=== PATIENT | female | born 1965 | race Caucasian/White ===

== ENCOUNTER 2023-03-30 11:25 | Outpatient (OUT) | payer BC, OTHER, SELFPAY ==
--- NOTE | 2023-03-30 11:30 | MM_ITS ---
Patient: FRANCIS ESPARZA Exam Date: 03/30/2023 : 1965 Gender:F Ordering : DR Parvez Lerma D.O. Admission #: [id number] Family : Order #: [id number] CLICK HERE TO VIEW EXAM RADIOLOGY REPORT PROCEDURE: MM TOMOSYNTHESIS SCREENING BI COMPARISON: MG MAMM SCREEN 3D ANIBAL CAD, 03/10/2021. MG MAMM SCREEN 3D ANIBAL CAD, 03/18/2022. INDICATIONS: Screening for malignant neoplasm Calculator Name NCI Breast Cancer Risk Assessment Tool 5 Year Breast Cancer Risk 1.80% Lifetime Breast Cancer Risk 10.20% Personal Breast Cancer No Personal Ovarian Cancer No Treatments None Family Cancers Mother with bladder cancer at age 69. LOCATION: [facility] BREAST COMPOSITION: Heterogeneously dense,which may obscure small masses. FINDINGS: DIAGNOSTIC CATEGORY 1--NEGATIVE. NO CHANGE FROM COMPARISON ASSESSMENT. Scattered benign-appearing calcifications are present. Scattered benign-appearing lymph nodes are present. RIGHT BREAST: No significant suspicious finding. LEFT BREAST: No significant suspicious finding. RECOMMENDATIONS: ROUTINE MAMMOGRAM AND CLINICAL EVALUATION IN 12 MONTHS. PLEASE NOTE: A NORMAL MAMMOGRAM DOES NOT EXCLUDE THE POSSIBILITY OF BREAST CANCER. A CLINICALLY SUSPICIOUS PALPABLE LUMP SHOULD BE BIOPSIED. Dictated by: Lukasz Moncada MD on 03/31/2023 at 08:06 Approved by: Lukasz Moncada MD on 03/31/2023 at 08:07
== END 2023-03-30 11:26 | disposition home or self-care (01) ==
LOC: MAMMO 11:26
PROVIDERS: PCP Internal Medicine; Visit Provider Internal Medicine
DX: Z12.31 Encounter for screening mammogram for malignant neoplasm of breast (principal); Z80.52 Family history of malignant neoplasm of bladder
CPT/HCPCS: 77063; 77067

== ENCOUNTER 2023-05-19 13:48 | Outpatient (OUT) | payer BC, OTHER, SELFPAY | END 2023-05-19 13:49 | disposition home or self-care (01) | LOC: LAB 13:48 | PROVIDERS: PCP Internal Medicine; Visit Provider Internal Medicine | DX: T45.2X1A Poisoning by vitamins, accidental (unintentional), initial encounter (principal) | CPT/HCPCS: 36415; 82306 ==

== ENCOUNTER 2024-04-03 10:08 | Outpatient (OUT) | payer BC, OTHER, SELFPAY ==
--- NOTE | 2024-04-03 10:10 | MM_ITS ---
Patient Name: FRANCIS ESPARZA MR#: [id number] : 1965 Exam Date: 04/03/2024 Ordering Doctor: DR Parvez Lerma D.O. RADIOLOGY REPORT PROCEDURE: MM TOMOSYNTHESIS SCREENING BI COMPARISON: MM TOMOSYNTHESIS SCREENING BI, 03/30/2023. MG MAMM SCREEN 3D ANIBAL CAD, 03/18/2022. MG MAMM SCREEN 3D ANIBAL CAD, 03/10/2021. MG MAMM ANIBAL SCRN W CAD DIG, 11/27/2012. INDICATIONS: Screening Calculator Name NCI Breast Cancer Risk Assessment Tool 5 Year Breast Cancer Risk 1.90% Lifetime Breast Cancer Risk 10.00% Personal Breast Cancer No Personal Ovarian Cancer No Treatments None Family Cancers Mother with bladder cancer at age 69. LOCATION: [facility] BREAST COMPOSITION: The breasts are heterogeneously dense,which may obscure small masses. FINDINGS: DIAGNOSTIC CATEGORY 1--NEGATIVE. RIGHT BREAST: No significant suspicious finding. No significant change has occurred. LEFT BREAST: No significant suspicious finding. No significant change has occurred. RECOMMENDATIONS: ROUTINE MAMMOGRAM AND CLINICAL EVALUATION IN 12 MONTHS. PLEASE NOTE: A NORMAL MAMMOGRAM DOES NOT EXCLUDE THE POSSIBILITY OF BREAST CANCER. A CLINICALLY SUSPICIOUS PALPABLE LUMP SHOULD BE BIOPSIED. Dictated by: Kameron Henderson M.D. on 04/07/2024 at 18:27 Approved by: Kameron Henderson M.D. on 04/07/2024 at 18:30
--- OUTSIDE RECORDS SUMMARY | 2024-04-03 10:11 | XMS_ITS | CCD ---
Author Organization [facility] Care Team Providers Care Roofing Applicator Name Role Phone CHARANJIT, DR PIPER Admitting Unavailable CHARANJIT, DR PIPER Attending Unavailable CHARANJIT, DR PIEPR Primary Care Unavailable CHARANJIT, DR PIPER Consulting Unavailable WEST, DR JOY Reich Consulting Unavailable Parvez Donohue Unavailable Allergies Allergy Classification Reported Allergen(s) Allergy Type Date of Onset Reaction(s) Facility (1 source) Adhesive agent Drug allergy (disorder) [facility] Repository (4 sources) patient allergy list reviewed by nurse or physicia Propensity to adverse reactions Comment:Done [facility] Other Medications Current Medications Medication Drug Class(es) Dates Sig (Normalized) Sig (Original) atorvastatin 40 mg oral tablet (12 sources) HMG-CoA Reductase Inhibitor Start: 08-03-2023 End: 11-14-2023 take 40 mg by mouth once daily in the evening Atorvastatin Active 40 MG PO Every evening 90 90 November 14, 2023 1:15pm Atorvastatin Jonathan cium 40 MG TAKE 1 TABLET DAILY IN THE EVENING Active biotin 1 mg chewable tablet (9 sources) Start: 08-03-2023 take 1000 ug by mouth once daily Biotin Active 1000 MCG PO Daily August 03, 2023 1:00am take 1 tablet by reddy th every twenty-four hours Biotin 1000 MCG 1 tablet Orally Once a day Active take 1 tablet by reddy th every twenty-four hours Biotin 1000 MCG 1 tablet Orally Once a day Active cholecalciferol 0.025 mg oral capsule (3 sources) Vitamin D Start: 08-03-2023 take 25 ug by mouth once daily Cholecalciferol (Vitamin D3) Active 25 MCG PO Daily August 03, 2023 1:00am Start: 12-06-2022 take 1 capsule by mo uth every other day Vitamin D3 250 MCG (20458 UT) 1 capsule Orally qod for 30 days Nov, Active clonazePAM 1 mg oral tablet (12 sources) Benzodiazepine Start: 08-03-2023 End: 08-23-2023 take 1 mg by mouth once daily at bedtime Clonazepam Active 1 MG PO Daily at bedtime 90 90 August 23, 2023 6:02pm Start: 11-21-2022 clonazePAM 1 M G TAKE 1 TABLET AT BEDTIME for 90 May, Active take 1 tablet by reddy th every twenty-four hours clonazePAM 1 MG 1 tablet Orally Once a day Active fluticasone propionate 0.05 mg/actuat metered dose nasal spray (11 sources) Corticosteroid Start: 08-03-2023 Fluticasone Pr opionate Active 1 SPRAY INTRANASAL Daily August 03, 2023 1:00am take 1 spray(s) nasal route once daily Fluticasone Propionate 50 MCG/ACT 1 spray in each nostril Nasally Once a day Active take 1 spray(s) nasal route once daily Fluticasone Propionate 50 MCG/ACT 1 spray in each nostril Nasally Once a day Active mecobalamin 1 mg chewable tablet (2 sources) Start: 08-03-2023 take 1000 ug by mouth once daily Mecobalamin (Vitamin B12) Active 1000 MCG PO Daily August 03, 2023 1:00am metoprolol tartrate 100 mg oral tablet (12 sources) beta-Adrenergic Rita Start: 08-03-2023 End: 11-14-2023 take 100 mg by mouth twice daily Metoprolol Tartrate Active 100 MG PO Twice daily 180 90 November 14, 2023 1:16pm Metoprolol Tartr ate 100 MG TAKE 1 TABLET TWICE A DAY for 90 Active Multi For Her - (7 sources) Multi For Her - as directed Orally Active Multivitamin (Multiple Vitamins) tablet (2 sources) Start: 08-03-2023 take 1 tablet by mouth once daily Multivitamin (Multiple Vitamins) tablet Active 1 TAB PO Daily August 03, 2023 1:00am Start: 08-03-2023 take 1 tablet by reddy th once daily Multivitamin (Multiple Vitamins) tablet Active 1 TAB PO Daily August 03, 2023 12:00am omeprazole 40 mg delayed release oral capsule (12 sources) Proton Pump Inhibitor Start: 08-03-2023 End: 11-14-2023 take 40 mg by mouth once daily at breakfast Omeprazole Active 40 MG PO Daily 90 90 November 14, 2023 1:16pm ON EMPTY STOMACH FOLLOWED IN 30 MINUTES BY BREAKFAST Omeprazole 40 MG TAKE 1 CAPSULE DAILY ON EMPTY STOMACH FOLLOWED IN 30 MINUTES BY BREAKFAST Active sertraline 100 mg oral tablet (12 sources) Serotonin Reuptake Inhibitor Start: 08-03-2023 End: 11-14-2023 take 100 mg by mouth once daily at bedtime Sertraline Active 100 MG PO Daily at bedtime 90 90 November 14, 2023 1:16pm Sertraline HCl 1 00 MG TAKE 1 TABLET AT BEDTIME for 90 Active Sertraline HCl 1 00 MG TAKE 1 TABLET AT BEDTIME Active Sertraline HCl 1 00 MG TAKE 1 TABLET AT BEDTIME for 90 Active vitamin b12 1 mg extended release oral tablet (1 source) Vitamin B12 take 1 tablet by reddy th every twenty-four hours Vitamin B12 1000 MCG 1 tablet Orally Once a day Active Vitamin B12 1000 MCG (6 sources) take 1 tablet by mouth once teresa y Vitamin B12 1000 MCG 1 tablet Orally Once a day Active Vitamin D3 250 MCG (41791 UT ) (6 sources) Start: 12-06-2022 Start: 12-06-2022 take 1 capsule by [facility] every other day Vitamin D3 250 MCG (55425 UT) 1 capsule Orally qod for 30 days Nov, Active Completed/Discontinued Medications Medication Drug Class(es) Dates Sig (Normalized) Sig (Original) doxycycline hyclate 100 mg oral capsule (10 sources) Tetracycline-cla ss Drug Start: 08-03-2023 End: 11-28-2023 take 100 mg by mouth twice daily Doxycycline Hyclate Discontinued 100 MG PO Twice daily 14 August 03, 2023 1:00am November 28, 2023 10:48am Start: 09-22-2022 take 1 capsule by [facility] twice daily as needed Doxycycline Hyclate 100 MG 1 capsule Orally twice daily for 7 days Sep, Not-Taking/PRN predniSONE 20 mg oral tablet (10 sources) Start: 08-03-2023 End: 11-28-2023 Prednisone Discontinued 20 M G PO As Directed August 03, 2023 1:00am November 28, 2023 10:48am 1 tab tid w/ food x 3 days, then bid w/ food x 3 days, then qd w/ food x 3 days Start: 09-22-2022 predniSONE 20 MG 1 tablet Orally tid w/ food x 3 days, then bid w/ food x 3 days, then qd w/ food x 3 days for 9 Sep, Not-Taking/PRN Problems Active Problems Problem Classification Problem Date Documented Da te Episodic/Chronic Acute bronchitis (9 sources) Acute bronchitis due to other specified organisms; Translations: [Acute bronchitis] Onset: 07-31-2013 Resolved: 10-28-2019 Episodic Allergic reactions (20 sources) Allergic contact dermatitis due to plants, except food; Translations: [Allergic contact dermatitis due to plants, except food] Onset: 11-25-2013 Resolved: 10-28-2019 Episodic Anxiety disorders (10 sources) Generalized anxiety disorder; Translations: [Generalized anxiety disorder] Chronic Asthma (1 source) Asthma; Translations: [Unspecified asthma, uncomplicated] 08-03-2023 Chronic Cardiac dysrhythmias (17 sources) Palpitations; Translations: [Palpitations] Onset: 11-13-2018 Resolved: 10-28-2019 Episodic Deficiency and other anemia (13 sources) Pernicious anemia; Translations: [Vitamin B12 deficiency anemia due to intrinsic factor deficiency] Episodic Deficiency and other anemia (1 source) Vitamin B12 deficiency anemia due to intrinsic factor deficiency Episodic Disorders of lipid metabolism (20 sources) Pure hypercholesterolemi a; Translations: [Familial hypercholesterolemi a] Chronic Esophageal disorders (10 sources) Gastro-esophageal reflux disease with esophagitis; Translations: [Gastro-esophageal reflux disease with esophagitis, without bleeding] 11-26-2023 Chronic Essential hypertension (11 sources) Essential hypertension; Translations: [Essential (primary) hypertension] 11-26-2023 Chronic Immunizations and screening for infectious disease (4 sources) Vaccination given; Translations: [Encounter for immunization] Episodic Mood disorders (13 sources) Major depression in remission; Translations: [Major depressive disorder, single episode, in full remission] Chronic Multiple sclerosis (15 sources) Multiple sclerosis; Translations: [Multiple sclerosis] Chronic Other nutritional; endocrine; and metabolic disorders (7 sources) Severe obesity; Translations: [Morbid (severe) obesity due to excess calories] Chronic Other nutritional; endocrine; and metabolic disorders (11 sources) Body mass index 30+ - obesity; Translations: [Body mass index (BMI) 37.0-37.9, adult] Onset: 02-10-2016 Resolved: 10-28-2019 Chronic Other nutritional; endocrine; and metabolic disorders (1 source) Morbid (severe) obesity due to excess calories Chronic Other nutritional; endocrine; and metabolic disorders (1 source) Body mass index (BMI) 37.0-37.9, adult Chronic Other nutritional; endocrine; and metabolic disorders (4 sources) Obesity; Translations: [Obesity, unspecified] Chronic Other nutritional; endocrine; and metabolic disorders (4 sources) Simple obesity ; Translations: [Other obesity due to excess calories] Chronic Other screening for suspected conditions (not mental disorders or infectious disease) (20 sources) Encounter for screening mammogram for malignant neoplasm of breast; Translations: [Mammography abnormal] Onset: 01-12-2015 Resolved: 10-28-2019 Episodic Other upper respiratory disease (13 sources) Seasonal allergic rhinitis; Translations: [Other seasonal allergic rhinitis] Chronic Other upper respiratory infections (12 sources) Acute sinusitis; Translations: [Acute sinusitis, unspecified] Onset: 06-29-2016 Resolved: 10-28-2019 Episodic Poisoning by other medications and drugs (3 sources) Poisoning by vitamins, accidental (unintentional), initial encounter; Translations: [Poisoning by vitamins, accidental (unintentional), subsequent encounter] Episodic Residual codes; unclassified (14 sources) Periodic limb movement disorder; Translations: [Periodic limb movement disorder] 11-26-2023 Chronic Residual codes; unclassified (14 sources) Obstructive sleep apnea syndrome; Translations: [Obstructive sleep apnea (adult) (pediatric)] 11-26-2023 Chronic Residual codes; unclassified (1 source) Obstructive sleep apnea (adult) (pediatric) Chronic Residual codes; unclassified (1 source) Periodic limb movement disorder Chronic Residual codes; unclassified (1 source) Family history of malignant neoplasm of bladder; Translations: [FAM HX MALIGNANT NEOPLASM BLADDER] Onset: 03-22-2022 Episodic Thyroid disorders (15 sources) Subclinical hyperthyroidism; Translations: [Thyrotoxicosis, unspecified without thyrotoxic crisis or storm] 11-26-2023 Chronic Past or Other Problems Problem Classification Problem Date Documented Da te Episodic/Chronic Bacterial infection; unspecified site (4 sources) Bacterial infectious disease; Translations: [Bacterial infection, unspecified, in conditions classified elsewhere and of unspecified site] Onset: 05-09-2018 Resolved: 10-28-2019 Episodic Esophageal disorders (6 sources) Esophageal disorders; Translations: [Gastroesophageal reflux disease with esophagitis without hemorrhage] Malaise and fatigue (4 sources) Malaise and fatigue; Translations: [Other malaise and fatigue] Onset: 01-23-2015 Episodic Nonmalignant breast conditions (8 sources) Benign mammary dysplasia; Translations: [Other specified benign mammary dysplasias] Onset: 09-27-2016 Resolved: 10-28-2019 Episodic Nutritional deficiencies (4 sources) Vitamin D deficiency; Translations: [Vitamin D deficiency, unspecified] Onset: 01-23-2015 Resolved: 10-28-2019 Chronic Other and unspecified benign neoplasm (4 sources) Eruptive melanocytic nevi; Translations: [Melanocytic nevi, unspecified] Onset: 02-10-2016 Resolved: 10-28-2019 Episodic Other connective tissue disease (4 sources) Muscle pain; Translations: [Unspecified myalgia and myositis] Onset: 01-23-2015 Episodic Other ear and sense organ disorders (4 sources) Malignant otitis externa; Translations: [Malignant otitis externa] Onset: 05-18-2018 Resolved: 10-28-2019 Chronic Other ear and sense organ disorders (4 sources) Infective otitis externa; Translations: [Unspecified infective otitis externa] Onset: 05-18-2018 Resolved: 10-28-2019 Chronic Other hereditary and degenerative nervous system conditions (4 sources) Restless legs; Translations: [Restless legs syndrome] Resolved: 11-19-2019 Chronic Other non-traumatic joint disorders (4 sources) Joint pain; Translations: [Pain in joint, site unspecified] Onset: 07-31-2013 Episodic Other nutritional; endocrine; and metabolic disorders (4 sources) Obese class I; Translations: [Body mass index 34.0-34.9, adult] Onset: 02-10-2016 Resolved: 10-28-2019 Chronic Other nutritional; endocrine; and metabolic disorders (4 sources) Obese class II; Translations: [Body mass index 35.0-35.9, adult] Onset: 11-11-2016 Resolved: 10-28-2019 Chronic Otitis media and related conditions (4 sources) Eustachian tube salpingitis; Translations: [Unspecified Eustachian salpingitis, right ear] Onset: 05-09-2018 Resolved: 10-28-2019 Episodic Unclassified (4 sources) Abnormal result; Translations: [Other abnormal clinical finding] Onset: 03-22-2016 Viral infection (4 sources) Viral disease; Translations: [Viral infection, unspecified] Onset: 07-31-2013 Resolved: 10-28-2019 Episodic Results Test Name Value Interpretation Reference Range Facil ity MG MAMM SCREEN 3D ANIBAL CADon 03-18-2022 MG MAMM SCREEN 3D ANIBAL CAD Patient: FRANCIS ESPARZA Exam Date: 03/18/2022 : 1965 Gender:F Ordering : DR PARVEZ DONOHUE D.O. Admission #: [id number] Family : Order #: [id number] CLICK HERE TO VIEW EXAM RADIOLOGY REPORT PROCEDURE: MAMMOGRAM SCREENING 3D BILATERAL CAD COMPARISON: MG MAMM SCREEN ANIBAL W CAD, 03/03/2020. MG MAMM SCREEN 3D ANIBAL CAD, 03/10/2021. INDICATIONS: Screening mammography Calculator Name NCI Breast Cancer Risk Assessment Tool 5 Year Breast Cancer Risk 1.70% Lifetime Breast Cancer Risk 10.40% Personal Breast Cancer No Personal Ovarian Cancer No Treatments None Family Cancers Mother with bladder cancer at age 69. LOCATION: [facility] BREAST COMPOSITION: Heterogeneously dense,which may obscure small masses. FINDINGS: DIAGNOSTIC CATEGORY 1--NEGATIVE. NO CHANGE FROM COMPARISON ASSESSMENT. Scattered benign-appearing calcifications are present. RIGHT BREAST: No significant suspicious finding. LEFT BREAST: No significant suspicious finding. Stable focal asymmetry upper outer quadrant mid breast. RECOMMENDATIONS: ROUTINE MAMMOGRAM AND CLINICAL EVALUATION IN 12 MONTHS. PLEASE NOTE: A NORMAL MAMMOGRAM DOES NOT EXCLUDE THE POSSIBILITY OF BREAST CANCER. A CLINICALLY SUSPICIOUS PALPABLE LUMP SHOULD BE BIOPSIED. Dictated by: Joy Moncada MD on 03/18/2022 at 11:34 Approved by: Joy Moncada MD on 03/18/2022 at 11:50 Normal [facility] Vital Signs Date Time Vital Sign Value Performing Clinician Facility 11-28-2023 10:49-0400 Body height 167.64 cm [facility] 11-28-2023 10:49-0400 Body mass index (BMI) [Ratio] 35.9 kg/m2 [facility] 11-28-2023 10:49-0400 Body weight 100.86 kg [facility] 11-28-2023 10:49-0400 Diastolic blood pressure 76 mm[Hg] [facility] 06-18-2024 10:49-0400 Heart rate 70 /min [facility] 11-28-2023 10:49-0400 Respiratory rate 12 /min [facility] 11-28-2023 10:49-0400 Systolic blood pressure 122 mm[Hg] [facility] 05-29-2023 14:30-0500 Body height 167.64 cm [facility] 05-29-2023 14:30-0500 Body weight 104.87 kg [facility] 05-29-2023 14:30-0500 Diastolic blood pressure 69 mm[Hg] [facility] 05-29-2023 14:30-0500 Systolic blood pressure 104 mm[Hg] [facility] 12-06-2022 10:00-0400 Body height 167.64 cm Parvez Ball Other [facility] Other 12-06-2022 10:00-0400 Body mass index (BMI) [Ratio] 37.31 kg/m2 Parvez Ball Other [facility] Other 12-06-2022 10:00-0400 Body weight 104.87 kg Parvez Ball Other [facility] Other 12-06-2022 10:00-0400 Diastolic blood pressure 72 mm[Hg] Parvez Ball Other [facility] Other 12-06-2022 10:00-0400 Respiratory rate 12 /min Parvez Ball Other [facility] Other 12-06-2022 10:00-0400 Systolic blood pressure 105 mm[Hg] Parvez Ball Other [facility] Other Encounters Encounter Date Encounter Type Care Provider Facility Start: 11-28-2023 End: 11-28-2023 ambulatory [facility] Work Phone: Start: 11-28-2023 End: 11-28-2023 Encounter for general adult medical examination without abnormal findings [facility] Start: 11-28-2023 End: 11-28-2023 Patient encounter procedure [facility] Work Phone: Start: 08-03-2023 End: 08-03-2023 ambulatory [facility] Work Phone: Start: 08-03-2023 End: 08-03-2023 Patient encounter procedure [facility] Work Phone: Start: 05-29-2023 End: 05-29-2023 Patient encounter procedure [facility] Work Phone: Start: 05-22-2023 End: 05-22-2023 ambulatory Parvez Ball Other [facility] Other Start: 05-22-2023 Telephone encounter Parvez Ball [facility] Start: 05-16-2023 End: 05-16-2023 ambulatory Parvez Ball Other [facility] Other Start: 05-16-2023 Telephone encounter Parvez Ball [facility] Start: 05-15-2023 End: 05-15-2023 ambulatory Parvez Ball Other [facility] Other Start: 05-15-2023 Telephone encounter Parvez Ball [facility] Start: 04-03-2023 End: 04-03-2023 ambulatory Parvez Ball Other [facility] Other Start: 04-03-2023 Telephone encounter Parvez Ball [facility] Start: 12-06-2022 End: 12-06-2022 ambulatory Parvez Ball Other [facility] Other Start: 12-06-2022 Encounter for genera l adult medical examination without abnormal findings Parvez Ball [facility] Start: 12-06-2022 Periodic preventive med est patient 40-64yrs Parvez Ball [facility] Start: 12-06-2022 Telephone encounter Parvez Ball [facility] Start: 2022 End: 2022 ambulatory Parvez Donohue Other [facility] Other Start: 2022 Telephone encounter Parvez Donohue [facility] Start: 09-22-2022 End: 09-22-2022 ambulatory Parvez Donohue Other [facility] Other Start: 09-22-2022 Office outpatient vi sit 15 minutes Parvez Donohue [facility] Start: 03-18-2022 End: 03-19-2022 ambulatory PARVEZ DONOHUE Facility: Start: 12-02-2021 Adult health examination Parvez Donohue Other [facility] Other Procedures Date Procedure Procedure Detail Performing Clinician Start: 02-08-2017 End: 10-28-2019 Screening mammography Parvez Donohue Other Start: 02-10-2016 End: 10-28-2019 General examination of patient Parvez Donohue Other Start: 02-10-2016 End: 10-28-2019 Screening for malignant neoplasm of colon Parvez Donohue Other Screening for malign ant neoplasm of breast Parvez Donohue Other Immunizations Immunization Date Immunization Notes Care Provider Nico cervantes 03-28-2022 influenza virus vaccine, split virus (incl. purified surface antigen) Parvez Donohue Other [facility] Other 03-28-2022 influenza virus vaccine, unspecified formulation [facility] 03-28-2022 influenza, injectabl e, quadrivalent, preservative free [facility] 03-28-2022 influenza, injectabl e, quadrivalent, contains preservative Parvez Donohue Other [facility] Other 05-12-2021 COVID-19 Vaccine Moderna - Documentation Purposes Only Parvez Donohue Other [facility] 03-30-2021 influenza virus vaccine, split virus (incl. purified surface antigen) Parvez Donohue Other [facility] Other 03-30-2021 influenza virus vaccine, unspecified formulation [facility] 09-04-2020 COVID-19 Vaccine Moderna - Documentation Purposes Only Parvez Donohue Other [facility] 08-26-2020 COVID-19 Vaccine Moderna - Documentation Purposes Only Parvez Donohue Other [facility] 08-07-2020 COVID-19 Vaccine Moderna - Documentation Purposes Only Parvez Donohue Other [facility] 03-21-2019 influenza virus vaccine, split virus (incl. purified surface antigen) Parvez Donohue Other [facility] Other 03-21-2019 influenza virus vaccine, unspecified formulation [facility] Payers Date Payer Category Payer Unknown [id number] 1959 [employer] ( and others) [id number] 1960 Unknown [id number] [place] [facility] [id number] Social History Date Type Detail Facility Sex Assigned At [facility] [place] [facility] Other Start: 08-03-2023 End: 08-03-2023 Tobacco smoking status NHIS Ex-smoker (finding) [facility] Start: 1965 Sex Assigned At Female F [facility] Evaluation note 05-15-2023 Note Date & Type Note Facility 05-15-2023 Evaluation note Encounter Date Diagnosis Assessment Notes May, Poisoning by vitamin D, accidental or unintentional, initial encounter (ICD-10 - T45.2X1A) [facility] Other Evaluation note 12-06-2022 Note Date & Type Note Facility 12-06-2022 Evaluation note Encounter Date Diagnosis Assessment Notes Nov, Wellness examination (ICD-10 - Z00.00) Healthy diet and exercise. Reviewed age-appropriate preventive testing recommended. Nov, Hypercholesterolemia (ICD-10 - E78.00) Instructed on diet and exercise with continued statin therapy.Discusse d the beneficial effects of lowering cholesterol in reducing the risk for cerebrovascular and cardiovascular disease. Nov, Gastroesophageal reflux disease with esophagitis without hemorrhage (ICD-10 - K21.00) Diet instructions: Smaller portions, avoid eating and laying flat, avoid eating or drinking prior to bedtime. Weight loss. Nov, MS (multiple sclerosis) (ICD-10 - G35) Symptoms tolerable, no treatment necessary. f/u Neurology Nov, MARLEY (obstructive sleep apnea) (ICD-10 - G47.33) This patient is aware of the benefits associated with MARLEY: With continued use, the patient reduces the risk for CT, CVA, HTN, cardiac dysrhythmias and sudden cardiac deaths.The patient is also aware of the association between MARLEY and morning headaches, daytime somnolence, fatigue and obesity, which also has been improved with continued use.The patient is compliant with treatment, wearing the equipment every night for greater than 4 hours.The patient is instructed to continue use of the CPAP for MARLEY treatment. Nov, Pernicious anemia (ICD-10 - D51.0) SL B12 1000mcg daily. CBC w/ normal Hgb, MCV Nov, PLMD (periodic limb movement disorder) (ICD-10 - G47.61) Improved w/ use of Klonopin and PAP Nov, PHYLLIS (generalized anxiety disorder) (ICD-10 - F41.1) Healthy diet, exercise and keep active. Continue SSRI Nov, Poisoning by vitamin D, accidental or unintentional, initial encounter (ICD-10 - T45.2X1A) Instructed to hold Vitamin D during summer months. Restart in February and decrease to 10,000u qod Recheck Vitamin D in Nov, Morbid (severe) obesity due to excess calories (ICD-10 - E66.01) This patient has been instructed on a low-fat, high-fiber diet. They are instructed to reduce calories, portion sizes and snacks. It is recommended that they exercise for 30 minutes, 3-5 times weekly. Nov, Body mass index [BMI] 37.0-37.9, adult (ICD-10 - Z68.37) Nov, Colon cancer screening (ICD-10 - Z12.11) [facility] Other Evaluation note 12-06-2022 Note Date & Type Note Facility 12-06-2022 Evaluation note Encounter Date Diagnosis Assessment Notes Nov, Screening mammogram for breast cancer (ICD-10 - Z12.31) [facility] Other Evaluation note 09-22-2022 Note Date & Type Note Facility 09-22-2022 Evaluation note Encounter Date Diagnosis Assessment Notes Sep, Acute bronchitis due to other specified organisms (ICD-10 - J20.8) Instructed to use Robitussin or Mucinex for cough, saline or Flonase NS for congestion, Tylenol for pain and fever. [facility] Other Evaluation note Note Date & Type Note Facility Evaluation note No Information [facility] Other Evaluation note Note Date & Type Note Facility Evaluation note [facility] Other Evaluation note Note Date & Type Note Facility Evaluation note No assessment information availa [facility] Work Phone: Evaluation note Note Date & Type Note Facility Evaluation note Diagnosis Onset Date PHYLLIS (generalized anxiety disorder) acute GERD (gastroesophageal reflux disease) acute Hypercholesterolemia acute Hypertension acute Subclinical hypothyroidism a cute Wellness examination noneact marilu [facility] Work Phone: History general Narrative - Reported Note Date & Type Note Facility History general Narrative - Reported Type Medical History Pernicious anemia Medical History Subclinical hyperthyroidism Medical History Obstructive sleep apnea Medical History Essential (primary) hypertension Medical History Hyperlipidemia type II Medical History Gastroesophageal ref lux disease with esophagitis without hemorrhage Medical History Seasonal allergic rh initis, unspecified trigger Medical History Abnormal mammogram of left breas t Medical History Allergic contact cheko matitis due to plants, except food Medical History MS (multiple sclerosis) Medical History Palpitation Medical History PLMD (periodic limb movement dis order) Medical History Major depression in remission Surgical History BIOPSY OF LEFT BREAS T WITH ULTRASOUND GUIDANCE Surgical History SEPTOPLASTY Surgical History ETHMOIDECTOMY 1998 Surgical History TUBAL LIGATION 2004 Surgical History MARILEE 2004 Surgical History CYSTOSCOPY 2006 Surgical History RIGHT BUNIONECTOMY 2012 Hospitalization History SEE SURGICAL HX ilab Other History general Narrative - Reported Note Date & Type Note Facility History general Narrative - Reported ilab Other Summary Purpose Family History Relationship Condition Age at Onset Recorded Date/T rober father Alive and well Unknown Advance Directives Advance Directive Response Recorded Date/ Time Advance Directives No July 06, 2023 11:54am Advance Directive Response Recorded Date/ Time Advance Directives No July 06, 2023 12:54pm Chief Complaint and Reason for Visit Chief Complaint 6 Month Follow Up Sinuses, Neg [phone] Chief Complaint 6 month follow up Reason for Visit PHYLLIS (generalized anx iety disorder) GERD (gastroesophageal reflux disease) Hypercholesterolemia Hypertension Subclinical hypothyroidism Wellness examination Additional Source Comments INFORMATION SOURCE (unrecogn ized section and content) DATE CREATED AUTHOR 03/22/2022 [facility] REASON FOR VISIT (unrecogniz ed section and content) [phone]- Sinuses/ Conge stionNo InformationWELLNESSNo InformationNo Informationmamm resultsVitamin D recheckNo Informationlab results Care Teams (unrecognized sec tion and content) Team Status: Active Member Role Status Dates Parvez Donohue DO Primary Care Provider Active Team Status: Inactive Member Role Status Dates Parvez Donohue DO Attending Provider Active Sta rt: May 29, 2023 End: May 29, 2023 Team Status: Inactive Member Role Status Dates Parvez Donohue DO Primary Care Provide r, Attending Provider Active Start: August 03, 2023 End: August 03, 2023 Team Status: Inactive Member Role Status Dates Parvez Donohue DO Primary Care Provide r, Attending Provider Active Start: November 28, 2023 End: November 28, 2023 Goals (unrecognized section and content) Goals may be documented in a n alternate section FOR RECORDS PERTAINING TO PATIENTS WHO ARE OR HAVE BEEN ENROLLED IN A CHEMICAL DEPENDENCY/SUBSTANCEABUSE PROGRAM, SOME INFORMATION MAY BE OMITTED. This clinical summary was aggregated from multiple sources. Caution should be exercised in using it in the provision of clinical care. This summary normalizes information from multiple sources, and as a consequence, information in this document may materially change the coding, format and clinical context of patient data. In addition, data may be omitted in some cases. CLINICAL DECISIONS SHOULD BE BASED ON THE PRIMARY CLINICAL RECORDS. [facility], [facility]. provides no warranty or guarantee of the accuracy or completeness of information in this document.
== END 2024-04-03 10:09 | disposition home or self-care (01) ==
LOC: MAMMO 10:08
PROVIDERS: PCP Internal Medicine; Visit Provider Internal Medicine
DX: Z12.31 Encounter for screening mammogram for malignant neoplasm of breast (principal); Z80.52 Family history of malignant neoplasm of bladder
CPT/HCPCS: 77063; 77067

== ENCOUNTER 2024-05-29 11:23 | Outpatient (OUT) | payer BC, OTHER, SELFPAY ==
--- NOTE | 2024-05-29 11:29 | XR_ITS ---
The [address] [address] Patient Name: FRANCIS ESPARZA MRN: [id number] date: 1965 Sex: F Assigned Patient Location: RAD Current Patient Location: RAD Accession/Order Number: [id number] Exam Date: 05/29/2024 11:34 Report Date: 05/29/2024 16:10 At the request of: FELIZ DONOHUE Procedure: XR chest 2V PROCEDURE: XR chest 2V DATE: 05/29/2024 10:34 AM [employer] [employer] [employer] COMPARISONS: None. CLINICAL INDICATION: 58 years Female Cough FINDINGS: The heart and mediastinum are within normal limits. There is slightly coarse increased markings throughout all lung ponce. The etiology is unclear at this time. Given the history of cough, this could be diffuse interstitial inflammatory infiltrate. There is no consolidating infiltrates to suggest localized pneumonia however. These increased markings could be due to chronic lung changes. There is no evidence of pleural effusion or pneumothorax. XR/XR chest 2V IMPRESSION: Diffuse increase interstitial markings of unclear etiology. These likely either represent chronic lung changes or some diffuse interstitial inflammatory infiltrate. Electronically authenticated by: CLAUDINE BETANCUR Date: 05/29/2024 16:10
--- OUTSIDE RECORDS SUMMARY | 2024-05-29 11:47 | XMS_ITS | CCD ---
Author Organization [facility] Care Team Providers Care Engraver Wood Name Role Phone FLORENTIN, DR PIPER Admitting Unavailable FLORENTIN, DR PIPER Attending Unavailable FLORENTIN, DR PIPER Primary Care Unavailable FLORENTIN, DR PIPER Consulting Unavailable WEST, DR JOY Reich Consulting Unavailable Parvez Donohue Unavailable Allergies Allergy Classification Reported Allergen(s) Allergy Type Date of Onset Reaction(s) Facility (1 source) Adhesive agent Drug allergy (disorder) [facility] Repository (4 sources) patient allergy list reviewed by nurse or physicia Propensity to adverse reactions Comment:Done [facility] Other Medications Current Medications Medication Drug Class(es) Dates Sig (Normalized) Sig (Original) atorvastatin 40 mg oral tablet (14 sources) HMG-CoA Reductase Inhibitor Start: 08-03-2023 End: 11-14-2023 take 40 mg by mouth once daily in the evening Atorvastatin Active 40 MG PO Every evening 90 90 November 14, 2023 1:15pm Atorvastatin Jonathan cium 40 MG TAKE 1 TABLET DAILY IN THE EVENING Active biotin 1 mg chewable tablet (10 sources) Start: 08-03-2023 take 1000 ug by mouth once daily Biotin Active 1000 MCG PO Daily August 03, 2023 1:00am take 1 tablet by reddy th every twenty-four hours Biotin 1000 MCG 1 tablet Orally Once a day Active take 1 tablet by reddy th every twenty-four hours Biotin 1000 MCG 1 tablet Orally Once a day Active cholecalciferol 0.025 mg oral capsule (4 sources) Vitamin D Start: 08-03-2023 take 25 ug by mouth once daily Cholecalciferol (Vitamin D3) Active 25 MCG PO Daily August 03, 2023 1:00am Start: 12-06-2022 take 1 capsule by mo uth every other day Vitamin D3 250 MCG (95743 UT) 1 capsule Orally qod for 30 days Nov, Active fluticasone propionate 0.05 mg/actuat metered dose nasal spray (12 sources) Corticosteroid Start: 08-03-2023 Fluticasone Pr opionate Active 1 SPRAY INTRANASAL Daily August 03, 2023 1:00am take 1 spray(s) nasal route once daily Fluticasone Propionate 50 MCG/ACT 1 spray in each nostril Nasally Once a day Active take 1 spray(s) nasal route once daily Fluticasone Propionate 50 MCG/ACT 1 spray in each nostril Nasally Once a day Active mecobalamin 1 mg chewable tablet (3 sources) Start: 08-03-2023 take 1000 ug by mouth once daily Mecobalamin (Vitamin B12) Active 1000 MCG PO Daily August 03, 2023 1:00am metoprolol tartrate 100 mg oral tablet (14 sources) beta-Adrenergic Rita Start: 08-03-2023 End: 11-14-2023 take 100 mg by mouth twice daily Metoprolol Tartrate Active 100 MG PO Twice daily 180 90 November 14, 2023 1:16pm Metoprolol Tartr ate 100 MG TAKE 1 TABLET TWICE A DAY for 90 Active Multi For Her - (7 sources) Multi For Her - as directed Orally Active Multivitamin (Multiple Vitamins) tablet (3 sources) Start: 08-03-2023 take 1 tablet by mouth once daily Multivitamin (Multiple Vitamins) tablet Active 1 TAB PO Daily August 03, 2023 1:00am Start: 08-03-2023 take 1 tablet by reddy th once daily Multivitamin (Multiple Vitamins) tablet Active 1 TAB PO Daily August 03, 2023 12:00am omeprazole 40 mg delayed release oral capsule (14 sources) Proton Pump Inhibitor Start: 08-03-2023 End: 11-14-2023 take 40 mg by mouth once daily at breakfast Omeprazole Active 40 MG PO Daily 90 90 November 14, 2023 1:16pm ON EMPTY STOMACH FOLLOWED IN 30 MINUTES BY BREAKFAST Omeprazole 40 MG TAKE 1 CAPSULE DAILY ON EMPTY STOMACH FOLLOWED IN 30 MINUTES BY BREAKFAST Active sertraline 100 mg oral tablet (14 sources) Serotonin Reuptake Inhibitor Start: 08-03-2023 End: 11-14-2023 take 100 mg by mouth once daily at bedtime Sertraline Active 100 MG PO Daily at bedtime 90 November 14, 2023 1:16pm Sertraline HCl [...] a day Active Vitamin D3 250 MCG (10599 UT ) (6 sources) Start: 12-06-2022 Start: 12-06-2022 take 1 capsule by mo uth every other day Vitamin D3 250 MCG (19503 UT) 1 capsule Orally qod for 30 days Nov, Active Completed/Discontinued Medications Medication Drug Class(es) Dates Sig (Normalized) Sig (Original) clonazePAM 1 mg oral tablet (16 sources) Benzodiazepine Start: 08-03-2023 End: 02-06-2024 take 1 mg by mouth once daily at bedtime Clonazepam Discontinued 1 MG PO Daily at bedtime 90 90 February 05, 2024 9:29pm February 06, 2024 5:00pm Start: 11-21-2022 clonazePAM 1 M G TAKE 1 TABLET AT BEDTIME for 90 May, Active take 1 tablet by [facility] every twenty-four hours clonazePAM 1 MG 1 tablet Orally Once a day Active doxycycline hyclate 100 mg oral capsule (11 sources) Tetracycline-class Drug Start: 08-03-2023 End: 11-28-2023 take 100 mg by mouth twice daily Doxycycline Hyclate Discontinued 100 MG PO Twice daily 14 August 03, 2023 1:00am November 28, 2023 10:48am Start: 09-22-2022 take 1 capsule by mo [facility] twice daily as needed Doxycycline Hyclate 100 MG 1 capsule Orally twice daily for 7 days Sep, Not-Taking/PRN predniSONE 20 mg oral tablet (11 sources) Start: 08-03-2023 End: 11-28-2023 Prednisone Discontinued [...] Onset: 11-25-2013 Resolved: 10-28-2019 Episodic Anxiety disorders (11 sources) Generalized anxiety disorder; Translations: [Generalized anxiety disorder] Chronic Asthma (2 sources) Asthma; Translations: [Unspecified asthma, uncomplicated] 08-03-2023 Chronic [...] Translations: [Familial hypercholesterolemi a] Chronic Esophageal disorders (11 sources) Gastro-esophageal reflux disease with esophagitis; Translations: [Gastro-esophageal reflux disease with esophagitis, without bleeding] 11-26-2023 Chronic Essential hypertension (12 sources) Essential hypertension; Translations: [Essential (primary) hypertension] 11-26-2023 Chronic Immunizations and screening for infectious disease (4 sources) Vaccination given; Translations: [Encounter for immunization] Episodic Mood disorders (13 sources) Major depression in remission; Translations: [Major depressive disorder, single episode, in full remission] Chronic Multiple sclerosis (16 sources) Multiple sclerosis; Translations: [Multiple sclerosis] Chronic [...] (unintentional), subsequent encounter] Episodic Residual codes; unclassified (15 sources) Periodic limb movement disorder; Translations: [Periodic limb movement disorder] 11-26-2023 Chronic Residual codes; unclassified (15 sources) Obstructive sleep apnea syndrome; Translations: [Obstructive [...] : DR PARVEZ DONOHUE D.O. Admission #: [id number] Family : Order #: [id number] CLICK HERE TO VIEW EXAM RADIOLOGY REPORT [...] with bladder cancer at age 68. LOCATION: [facility] BREAST COMPOSITION: Heterogeneously dense,which may obscure [...] Moncada MD on 03/18/2022 at 11:50 Normal [facility] Vital Signs Date Time Vital Sign Value Performing Clinician Facility 11-28-2023 10:49-0400 Body height 167.64 cm [facility] 11-28-2023 10:49-0400 Body mass index (BMI) [Ratio] 35.9 kg/m2 [facility] 11-28-2023 10:49-0400 Body weight 100.86 kg [facility] 11-28-2023 10:49-0400 Diastolic blood pressure 76 mm[Hg] [facility] 11-28-2023 10:49-0400 Heart rate 70 /min [facility] 11-28-2023 10:49-0400 Respiratory rate 12 /min [facility] 11-28-2023 10:49-0400 Systolic blood pressure 122 mm[Hg] [facility] 05-29-2023 14:30-0500 Body height 167.64 cm [facility] 05-29-2023 14:30-0500 Body weight 104.87 kg [facility] 05-29-2023 14:30-0500 Diastolic blood pressure 69 mm[Hg] [facility] 05-29-2023 14:30-0500 Systolic blood pressure 104 mm[Hg] [facility] 12-06-2022 10:00-0400 Body height 167.64 cm Parvez Ball Other [facility] Other 12-06-2022 10:00-0400 Body mass index (BMI) [Ratio] 37.31 kg/m2 Parvez Ball Other [facility] [employer] Other 12-06-2022 10:00-0400 Body weight 104.87 kg Parvez Ball Other [facility] Other 12-06-2022 10:00-0400 Diastolic blood pressure 72 mm[Hg] Parvez Ball Other [facility] Other 12-06-2022 10:00-0400 Respiratory rate 12 /min Parvez Ball Other [facility] Other 12-06-2022 10:00-0400 Systolic blood pressure 105 mm[Hg] Parvez Ball Other [facility] Other Encounters Encounter Date Encounter Type Care Provider Facility Start: 04-03-2024 End: 04-03-2024 ambulatory [facility] Work Phone: Start: 04-03-2024 End: 04-03-2024 Patient encounter procedure [facility] Work Phone: Start: 11-28-2023 End: 11-28-2023 ambulatory [facility] Work Phone: Start: 11-28-2023 End: 11-28-2023 Encounter for general adult medical examination without abnormal findings [facility] Start: 11-28-2023 End: 11-28-2023 Patient encounter procedure [facility] Work Phone: Start: 08-03-2023 End: 08-03-2023 ambulatory [facility] Work Phone: Start: 08-03-2023 End: 08-03-2023 Patient encounter procedure [facility] Work Phone: Start: 05-29-2023 End: 05-29-2023 Patient encounter procedure [facility] Work Phone: Start: 05-22-2023 End: 05-22-2023 ambulatory Parvez Ball Other [facility] Other Start: 05-22-2023 Telephone encounter Parvez Ball [facility] Start: 05-16-2023 End: 05-16-2023 ambulatory Parvez Ball Other [facility] Other Start: 05-16-2023 Telephone encounter Parvez Ball [facility] Start: 05-15-2023 End: 05-15-2023 ambulatory Parvez Ball Other [facility] Other Start: 05-15-2023 Telephone encounter Parvez Ball [facility] Start: 04-03-2023 End: 04-03-2023 ambulatory Parvez Ball Other [facility] Other Start: 04-03-2023 Telephone encounter Parvez Ball [facility] Start: 12-06-2022 End: 12-06-2022 ambulatory Parvez Ball Other [facility] Other Start: 12-06-2022 Encounter for genera l adult medical examination without abnormal findings Parvez Donohue [facility] Start: 12-06-2022 Periodic preventive med est patient 40-64yrs Parvez Donohue [facility] Start: 12-06-2022 Telephone encounter Parvez Donohue [facility] Start: 2022 End: 2022 ambulatory Parvez Donohue Other [facility] Other Start: 2022 Telephone encounter Parvez CAMACHO [facility] Start: 09-22-2022 End: 09-22-2022 ambulatory Parvez Donohue Other [facility] Other Start: 09-22-2022 Office outpatient vi sit 15 minutes Parvez Donohue [facility] Start: 03-18-2022 End: 03-19-2022 ambulatory PARVEZ DONOHUE Facility: Start: 12-02-2021 Adult health examination Parvez Donohue Other [facility] Other Procedures Date Procedure Procedure Detail Performing Clinician Start: 02-08-2017 End: 10-28-2019 Screening mammography Parvez Donohue Other Start: 02-10-2016 End: 10-28-2019 General examination of patient Parvez Donohue Other Start: 02-10-2016 End: 10-28-2019 Screening for malignant neoplasm of colon Parvez Donohue Other Screening for malign ant neoplasm of breast Parvez Donohue Other Immunizations Immunization Date Immunization Notes Care Provider Fa billy 04-03-2024 influenza, seasonal, injectable, preservative free [facility] 03-28-2022 influenza virus vaccine, split virus (incl. purified surface antigen) Parvez Donohue Other [facility] Other 03-28-2022 influenza virus vaccine, unspecified formulation [facility] 03-28-2022 influenza, injectabl e, quadrivalent, preservative free [facility] 03-28-2022 influenza, injectabl e, quadrivalent, contains preservative Parvez Donohue Other [facility] [employer] Other 05-12-2021 COVID-19 Vaccine Moderna - Documentation Purposes Only Parvez Donohue Other [facility] 03-30-2021 influenza virus vaccine, split virus (incl. purified surface antigen) Parvez Donohue Other [facility] Other 03-30-2021 influenza virus vaccine, unspecified formulation [facility] 09-04-2020 COVID-19 Vaccine Moderna - Documentation Purposes Only Parvez Donohue Other [facility] 08-26-2020 COVID-19 Vaccine Moderna - Documentation Purposes Only Parvez Donohue Other [facility] 08-07-2020 COVID-19 Vaccine Moderna - Documentation Purposes Only Parvez Donohue Other [facility] 03-21-2019 influenza virus vaccine, split virus (incl. purified surface antigen) Parvez Donohue Other [facility] [employer] Other 03-21-2019 influenza virus vaccine, unspecified formulation [facility] Payers Date Payer Category Payer Unknown [id number] 1959 [employer] ( and others) [id number] 1960 Unknown [id number] Unknown O [id number] Social History Date Type Detail Facility Sex Assigned At [facility] [employer] Other Start: 08-03-2023 End: 08-03-2023 Tobacco smoking status NHIS Ex-smoker (finding) [facility] Start: 1965 Sex Assigned At Female F [facility] Evaluation note 05-15-2023 Note Date & Type Note Facility 05-15-2023 Evaluation note Encounter Date Diagnosis Assessment Notes May, Poisoning by vitamin D, accidental or unintentional, initial encounter (ICD-10 - T45.2X1A) [facility] Other Evaluation note 12-06-2022 Note Date & [...] use, the patient reduces the risk for NH, CVA, HTN, cardiac dysrhythmias and sudden cardiac [...] Nov, Colon cancer screening (ICD-10 - Z12.11) [facility] Other Evaluation note 12-06-2022 Note Date & Type Note Facility 12-06-2022 Evaluation note Encounter Date Diagnosis Assessment Notes Nov, Screening mammogram for breast cancer (ICD-10 - Z12.31) [facility] Other Evaluation note 09-22-2022 Note Date & Type Note Facility 09-22-2022 Evaluation note Encounter Date Diagnosis Assessment Notes Sep, Acute bronchitis due to other specified organisms (ICD-10 - J20.8) Instructed to use Robitussin or Mucinex for cough, saline or Flonase NS for congestion, Tylenol for pain and fever. [facility] Other Evaluation note Note Date & Type Note Facility Evaluation note No Information [facility] Other Evaluation note Note Date & Type Note Facility Evaluation note [facility] Other Evaluation note Note Date & Type Note Facility Evaluation note No assessment information availa [facility] Work Phone: Evaluation note Note Date & Type Note Facility Evaluation note Diagnosis Onset Date PHYLLIS (generalized anxiety disorder) acute GERD (gastroesophageal reflux disease) acute Hypercholesterolemia acute Hypertension acute Subclinical hypothyroidism a cute Wellness examination noneact marilu [facility] Work Phone: History general Narrative - [...] Surgical History MARILEE 2004 Surgical History CYSTOSCOPY 2005 Surgical History RIGHT BUNIONECTOMY 2012 Hospitalization History SEE SURGICAL HX [facility] Other History general Narrative - Reported Note Date & Type Note Facility History general Narrative - Reported [facility] Other Summary Purpose Family History Relationship Condition Age at Onset Recorded Date/T rober father Alive and well Unknown Advance Directives Advance Directive Response Recorded Date/ Time Advance Directives No July 06, 2023 11:54am Advance Directive Response Recorded Date/ Time Advance Directives No July 06, 2023 12:54pm Chief Complaint and Reason for Visit Chief Complaint 6 Month Follow Up Sinuses, Neg [phone] Chief Complaint 6 month follow up Reason for Visit PHYLLIS (generalized anx iety disorder) GERD (gastroesophageal reflux disease) Hypercholesterolemia Hypertension Subclinical hypothyroidism Wellness examination Chief Complaint flu shot Additional Source Comments INFORMATION SOURCE (unrecogn ized section and content) DATE CREATED AUTHOR 03/22/2022 [facility] REASON FOR VISIT (unrecogniz ed section and content) [phone]- Sinuses/ Conge stionNo InformationWELLNESSNo InformationNo Informationmamm resultsVitamin D recheckNo Informationlab results Care Teams (unrecognized sec tion and content) Team Status: Active Member Role Status Dates Parvez Donohue DO Primary Care Provider Active Team Status: Inactive Member Role Status Dates Parvez Donohue DO Attending Provider Active Sta rt: May 29, 2023 End: May 29, 2023 Team Status: Inactive Member Role Status Demi Donohue DO Primary Care Provide r, Attending Provider Active Start: August 03, 2023 End: August 03, 2023 Team Status: Inactive Member Role Status Dates Parvez Donohue DO Primary Care Provide r, Attending Provider Active Start: November 28, 2023 End: November 28, 2023 Team Status: Inactive Member Role Status Dates Parvez Donohue DO Primary Care Provide r, Attending Provider Active Start: April 03, 2024 End: April 03, 2024 Goals (unrecognized section and content) Goals may [...] BE BASED ON THE PRIMARY CLINICAL RECORDS. [facility]. provides no warranty or guarantee of the accuracy or completeness of information in this document.
== END 2024-05-29 11:24 | disposition home or self-care (01) ==
LOC: RAD 11:25
PROVIDERS: PCP Internal Medicine; Visit Provider Internal Medicine
DX: R05.1 Acute cough (principal)
CPT/HCPCS: 71046

== ENCOUNTER 2024-08-30 14:20 | Outpatient (OUT) | payer BC, OTHER, SELFPAY ==
--- NOTE | 2024-08-30 14:25 | CT_ITS ---
The [address] [address] Patient Name: FRANCIS ESPARZA MRN: [id number] date: 1965 Sex: F Assigned Patient Location: CT Current Patient Location: CT Accession/Order Number: [id number] Exam Date: 08/30/2024 14:56 Report Date: 08/30/2024 15:10 At the request of: FELIZ DONOHUE DO Procedure: CT chest wo con CT CHEST WITHOUT CONTRAST COMPARISON: Chest x-ray 05/29/2024 CLINICAL DATA: Cough. History of abnormal chest x-ray with interstitial changes Spiral images were obtained the chest without contrast. Images were reviewed using both narrow and wide window settings. This CT exam was performed using one or more following dose reduction techniques: Automated exposure control, adjustment of the mA and/or kV according to patient size, or use of iterative reconstruction technique. The heart is normal size. No pericardial effusion is seen. No aortic aneurysm is identified. There are few small mediastinal and axillary lymph nodes. Mild endplate spurring is seen at the spine. Minor linear scarring or atelectasis is visualized, greatest at the lung bases. There is no additional consolidation, pleural effusion or pneumothorax. No interstitial and obstructive lung disease is noted. There are tiny scattered right lung nodules measuring 3 to 4 mm in size. There is a groundglass pleural-based nodular density at the right middle lobe measuring 5 mm and a subtle groundglass nodular area within the left upper lobe laterally which is also approximately 5 mm in size. Limited cuts through the upper abdomen show an irregular nodular area with associated calcification. Diaphragmatic region on the left posteriorly measuring approximate 2.7 cm in size. This appears to be arising from the distal aspect of the 12th rib. Etiology and chronicity is undetermined. CT/CT chest wo con IMPRESSION: MINOR SCARRING OR ATELECTASIS. TINY PULMONARY NODULES, DESCRIBED. IF PATIENT IS HIGH RISK, FOLLOW-UP COULD BE OBTAINED ACCORDING TO [employer] GUIDELINES. INDETERMINANT IRREGULAR CALCIFIED AREA ASSOCIATED WITH THE DISTAL LEFT 12TH RIB. Impression dictated by: Malorie Crouch M.D.08/30/2024 3:10 PM Dictation Location: [place] [address] Electronically authenticated by: [id number] Y Date: 08/30/2024 15:10
== END 2024-08-30 14:21 | disposition home or self-care (01) ==
LOC: CT 14:20
PROVIDERS: Visit Provider Internal Medicine
DX: R91.8 Other nonspecific abnormal finding of lung field (principal); R05.1 Acute cough; R93.89 Abnormal findings on diagnostic imaging of other specified body structures
CPT/HCPCS: 71250

== ENCOUNTER 2024-10-10 09:01 | Outpatient (OUT) | payer BC, OTHER, SELFPAY ==
[2024-10-10 09:15] LABS: Hemoglobin 13.1 g/dL (12.0-16.0)
--- NOTE | 2024-10-10 11:30 | RT_ITS ---
The [facility] Test Date: 2024-10-10 Pat Name: FRANCIS ESPARZA Department: Room: - Gender: Female Commercial Sales Manager: Efraín Cummings RRT : 1965 Requested By: FELIZ DONOHUE Order Number: [id number] Reading MD: Waldo Potts Interpretive Statements Pulmonary function testing was completed according to ATS criteria. Findings were considered accurate and reproducible. No bronchodilator was administered due to normal spirometric values. Spirometry: -FEV1/FVC: Normal @ 80% -FEV1: Normal @ 100% -FVC: Normal @ 96% Lung volumes by plethysmography: -RV: Normal @ 110% -TLC: Normal @ 110% Diffusion capacity: -DLCO: Mild reduction @ 75% when corrected for Hb 13.1g/dL Impressions: -Normal spirometry and lung volumes with an isolated mild diffusion impairment. This pattern can be seen in, but not restricted to, cardiopulmonary vascular disorders, early interstitial lung disease, and early emphysema. Clinical correlation required. Electronically Signed On 10-14-2024 17:03:47 EDT by Waldo Potts
== END 2024-10-10 09:02 | disposition home or self-care (01) ==
LOC: CARD 09:03
PROVIDERS: Visit Provider Internal Medicine
DX: R91.8 Other nonspecific abnormal finding of lung field (principal); J45.40 Moderate persistent asthma, uncomplicated
CPT/HCPCS: 36415; 85018; 94010; 94726; 94729

== ENCOUNTER 2025-03-13 08:35 | Outpatient (OUT) | payer BC, OTHER, SELFPAY ==
--- OUTSIDE RECORDS SUMMARY | 2024-08-16 09:37 | XMS_ITS ---
Author Name Auto Generated Organization [facility] Care Team Providers Care Mri Assistant Name Role Phone GARRY GREENE Attending Unavailable PROBLEMS No Problem Records Found PROCEDURES No Procedure Records Found RESULTS No Result Records Found ALLERGIES No Allergies Records Found ENCOUNTERS ADMIT/DISCHARGE ACCOUNT NUMBER ADMITTING ENCOUNTER CLASS LOCATION SOURCE 08/16/2024/ [id number] Ambulatory Building:[facility] EPIC PAYERS ENCOUNTER GUARANTOR PAYER SUBSCRIBER SOURCE 08/16/2024 FRANCIS COLEMANSDOB: [id number] [address] [address]Wcl: () Primary Insurance:Eva newman Number: [id number] marilu Date:2021-06-12 JOE COLEMANSDOB: [id number] [address] [address] [facility] EPIC 08/16/2024 Secondary Insurance:SANTOSH sanchez Number: [id number] Date:2009-11-25 FRANCIS COLEMANSDOB: [id number] [address] [address] [facility] EPIC
--- OUTSIDE RECORDS SUMMARY | 2025-03-13 08:39 | XMS_ITS | Clinical Summary ---
Author Organization [facility] Address [address] [place] [address] Care Team Providers Care [employer] Officer Name Role Phone Parvez Lerma DO Primary Care Provider [phone] Allergies No known active allergies Medications atorvastatin (Lipitor) 40 MG tablet 1 (one) time each day at the same time Active clonazePAM (KlonoPIN) 1 MG tablet 1 (one) time each day at the same time Active fluticasone (Flonase) 50 MCG/ACT nasal spray 1 (one) time each day at the same time Active loratadine (Claritin) 10 MG tablet 1 (one) time each day at the same time Active metoprolol tartrate (Lopressor) 100 MG tablet every 12 (twelve) hours Active omeprazole (PriLOSEC) [address] capsule 1 (one) time each day at the same time Active sertraline (Zoloft) 100 MG tablet 1 (one) time each day at the same time Active Advair Diskus 250-50 MCG/ACT aerosol powder 05/29/2024 Acti ve Adipex-P 37.5 MG tablet 05/29/2024 Active Active Problems No known active problems Social History Tobacco Use Types Packs/Day Years Used Date Smoking Tobacco: Former Cigarettes Tobacco Cessation:Counseling Given: Not Answered Comments Unknown Sex and Gender Information Value Date Recorded Sex Assigned at Not on file Legal Sex Female 6:48 PM EDT Gender Identity Not on file Sexual Orientation Not on file Plan of Treatment Upcoming Encounters Date Type Department Care Team (Late st Contact Info) Description 08/22/2025 9:00 AM EDT Office Visit [facility] [address] [place] [address] Sara Feldman, JOHNNY [address] [place] [address] Health Maintenance Due Date Last Done Comments CT Colonography 1965 Colonoscopy 1965 FIT 1965 FOBT 1965 Sigmoidoscopy 1965 Pap Smear 1985 Cervical Cancer Screening 1994 HPV/Cotest 1994 Mammogram 2004 Influenza Vaccine (#1) 2025 04/03/2024, 2022, 03/30/2021 Colorectal Cancer Screening 12/27/2025 FIT-DNA 12/27/2025 12/27/2022, 2019 Insurance BCBS [facility] Care Teams [employer] Relationship Specialty Start Date End Date Parvez Lerma DO PCP - General 08/09/24
--- NOTE | 2025-03-13 09:07 | CT_ITS ---
The [address] [address] Patient Name: FRANCIS ESPARZA MRN: [id number] date: 1965 Sex: F Assigned Patient Location: CT Current Patient Location: CT Accession/Order Number: [id number] Exam Date: 03/13/2025 08:59 Report Date: 03/13/2025 10:12 At the request of: FELIZ DONOHUE DO Procedure: CT chest high res HIGH-RESOLUTION CT CHEST WITHOUT CONTRAST COMPARISON: 08/30/2024 CLINICAL DATA: Chronic cough. Spiral axial unenhanced images were obtained through the chest. Images were reconstructed at 1 mm sections at 10 mm increments. Patient was also scanned in prone position using high resolution technique. Images were reviewed using both narrow and wide window settings. This CT exam was performed using one or more following dose reduction techniques: Automated exposure control, adjustment of the mA and/or kV according to patient size, or use of iterative reconstruction technique. The heart is normal size. No pericardial effusion is present. No aortic aneurysm is seen. There are a few tiny nonpathologic lymph nodes which were also present on the prior. There is endplate spurring at the spine. There is continued scarring or atelectasis, greatest at the lingula. There is no developing consolidation, pleural effusion or pneumothorax. No interstitial or obstructive lung disease is visualized. Stable bilateral pulmonary nodularity is noted. Limited cuts through the upper abdomen show a similar irregular calcified structure superior to the left kidney adjacent to the posterior hemidiaphragm, potentially arising from the 12th rib. CT/CT chest high res IMPRESSION: CONTINUED SCARRING AND/OR ATELECTASIS. STABLE PULMONARY NODULARITY. NO NEW ABNORMALITIES. Impression dictated by: Malorie Crouch M.D. 03/13/2025 10:12 AM Dictation Location: [place] [address] Electronically authenticated by: [id number] Y Date: 03/13/2025 10:12
== END 2025-03-13 08:36 | disposition home or self-care (01) ==
LOC: CT 08:35
PROVIDERS: PCP Internal Medicine; Visit Provider Internal Medicine
DX: R91.8 Other nonspecific abnormal finding of lung field (principal); J84.9 Interstitial pulmonary disease, unspecified
CPT/HCPCS: 71250

== ENCOUNTER 2025-04-04 10:27 | Outpatient (OUT) | payer BC, OTHER, SELFPAY ==
--- OUTSIDE RECORDS SUMMARY | 2025-04-04 10:29 | XMS_ITS | Clinical Summary ---
Author Organization [facility] Healthcare Address [address] [place] [address] Care Team Providers Care Paper Products Machine Operator Name Role Phone Parvez Lerma DO Primary Care Provider [phone] Allergies No known active allergies Medications MedicationSigDispense QuantityRefillsLast FilledStart DateEnd DateStatus atorvastatin (Lipitor) 40 MG tablet 1 (one) time each day at the same timeActive clonazePAM (KlonoPIN) 1 MG tablet 1 (one) time each day at the same timeActive fluticasone (Flonase) 50 MCG/ACT nasal spray 1 (one) time each day at the same timeActive loratadine (Claritin) 10 MG tablet 1 (one) time each day at the same timeActive metoprolol tartrate (Lopressor) 100 MG tablet every 12 (twelve) hoursActive omeprazole (PriLOSEC) [address] capsule 1 (one) time each day at the same timeActive sertraline (Zoloft) 100 MG tablet 1 (one) time each day at the same timeActive Advair Diskus 250-50 MCG/ACT aerosol powder 05/29/2024ctive Adipex-P 37.5 MG tablet 05/29/2024ctive Active Problems No known active problems Social History Tobacco UseTypesPacks/DayYears UsedDateSmoking Tobacco: FormerCigarettes Tobacco Cessation:Counseling Given: Not Answered CommentsUnknownSex and Gender InformationValueDate RecordedSex Assigned at BirthNot on fileLegal QdiNbeotf89/15/2023 6:48 PM EDTGender IdentityNot on fileSexual OrientationNot on file Plan of Treatment DateTypeDepartmentCare Team (Latest Contact Info)Ercxmefmgqx24/13/2026 9:00 AM EDTOffice Visit [facility] [address] [place] [address] Sara Feldman, JOHNNY [address] [place] [address] Health MaintenanceDue DateLast DoneCommentsCT Bfrmogmikuov22/22/1965Colonoscopy 1964FIT1964FOBT1964 9017Tapjdclyirukm52/22/1965Pap Smear1985 Cervical Cancer Iwgjcebre01/22/1995HPV/Addada2412/01/19940552Ndgdaqibq03/22/2005 Influenza Vaccine (#1)/, 04/04/2023, 03/30/2021olorectal Cancer Usmekkzqs03/18/2026FIT-DNA, 2019 Insurance Care Teams Team MemberRelationshipSpecialtyStart DateEnd Date Parvez Lerma DO PCP - General08/09/24
--- OUTSIDE RECORDS SUMMARY | 2025-04-04 10:31 | XMS_ITS | CCD ---
Author Organization [facility] Team Providers Care Mis Manager Name Role Phone DR PARVEZ DONOHUE Admitting Unavailable FLORENTIN, DR PIPER Attending Unavailable FLORENTIN, DR PIPER Primary Care Unavailable FLORENTIN, DR PIPER Consulting Unavailable WEST, DR JOY Reich Consulting Parvez Anthony Unavailable GARRY GREENE Attending Unavailable Parvez Donohue DO Primary Care Provider Parvez Donohue DO Attending Provider [phone] Allergies Allergy ClassificationReported Allergen(s)Allergy TypeDate of OnsetReaction(s) Facility (1 source)Adhesive agentDrug allergy (disorder)[facility] Repository (4 sources)patient allergy list reviewed by nurse or physiciaPropensity to adverse zkahwmtru62-03-2771Fuvjpxf:Spotjournal Other Medications Current Medications MedicationDrug Class(es)DatesSig (Normalized)Sig (Original)[id number] 200 actuat albuterol 0.09 mg/actuat metered dose inhaler (4 sources)beta2-Adrenergic AgonistStart: 31-32-2439luib 1 puff(s) by inhalation every six hours as needed for wheezingAlbuterol Sulfate 90 mcg/actuation HFA aerosol inhaler Active 2 PUFF INHALATION Every 6 hours as needed for shortness of breath or wheezing 8.5 May 15, 2024 1:00am Complies with drug therapyStart: 13-88-7956jofm 1.25 mg by inhalation four times daily as needed Albuterol Sulfate 1.25 mg/3 mL solution for nebulization Active 1.25 MG INHALATION Four times dailyas needed for bronchospasm 75 May 10, 2024 1:00am Complies with drug therapyAlbuterol Sulfate 1.25 mg/3 mL solution for nebulization (2 sources)Start: 74-47-2847efaz 1.25 mg by inhalation four times daily as neededAlbuterol Sulfate 1.25 mg/3 mL solution for nebulization Active 1.25 MG INHALATION Four times dailyas needed for bronchospasm 75 May 10, 2024 1:00amStart: 15-95-0422koik 1.25 mg by inhalation four times daily as needed Albuterol Sulfate 1.25 mg/3 mL solution for nebulization Active 1.25 MG INHALATION Four times dailyas needed for bronchospasm 75 May 10, 2024 12:00amatorvastatin 40 mg oral tablet (20 sources)HMG-CoA Reductase InhibitorStart: 14-00-8010wxoe 1 tablet by mouth once daily in the eveningAtorvastatin 40 mg tablet Active 0 .ROUTE .COMPLEX October 15, 2024 10:34pm TAKE ONE TABLET BY MOUTH EVERY EVENING Complies with drug therapyStart: 08-03-2023 End: 59-33-9522eeuz 1 tablet by mouth once daily in the eveningAtorvastatin 40 mg tablet Discontinued 40 MG PO Every evening November 14, 2023 1:15pm October 15, 2024 10:35pmAtorvastatin Calcium 40 MG TAKE 1 TABLET DAILY IN THE EVENING Activebiotin 1 mg chewable tablet (13 sources)Start: 05-72-5804jdkw 1 tablet by mouth once dailyBiotin 1,000 mcg tablet,chewable Active 1000 MCG PO Daily August 03, 2023 1:00am Complies with drug therapytake 1 tablet by mouth every twenty-four hoursBiotin 1000 MCG 1 tablet Orally Once a day Activetake 1 tablet by mouth every twenty-four hours Biotin 1000 MCG 1 tablet Orally Once a day Activecholecalciferol 0.025 mg oral capsule (7 sources)Vitamin DStart: 21-80-5706vnkl 1 capsule by mouth once daily Cholecalciferol (Vitamin D3) 25 mcg (1,000 unit) capsule Active 25 MCG PO Daily August 0341:00am Complies with drug therapyStart: 12-27-9880ezgj 1 capsule by mouth every other dayVitamin D3 250 MCG (62099 UT) 1 capsule Orally qod for 30 days Nov, ActiveclonazePAM 1 mg oral tablet (20 sources)BenzodiazepineStart: 08-03-2023 End: 58-86-8010xnho 1 tablet by mouth once daily at bedtimeClonazepam 1 mg tablet Active 1 MG PO Daily at bedtime 90 90 January 05, 2025 7:29pm Complies with drug therapyStart: 45-19-2640pciibhfITW 1 MG TAKE 1 TABLET AT BEDTIME for 90 May, Activetake 1 tablet by mouth every twenty-four hoursclonazePAM 1 MG 1 tablet Orally Once a day Activefluticasone propionate 0.05 mg/actuat metered dose nasal spray (15 sources)CorticosteroidStart: 77-06-5065Khrzijwncvw Propionate 50 mcg/actuation spray,suspension Active 1 SPRAY INTRANASAL Daily August 03, 2023 1:00am Complies with drug therapytake 1 spray(s) nasal route once daily Fluticasone Propionate 50 MCG/ACT 1 spray in each nostril Nasally Once a day Activetake 1 spray(s) nasal route once dailyFluticasone Propionate 50 MCG/ACT 1 spray in each nostril Nasally Once a day ActiveFluticasone Propion-Salmeterol (6 sources)Corticosteroid, beta2-Adrenergic AgonistStart: 82-96-4658Maamrqabkob Propion-Salmeterol 250-50 mcg/dose blister with device Active 1 INH INHALATION Every 12hours 180 30 January 23, 2025 5:59pm Complies with drug therapyStart: 07-26-2024 End: 04-10-1381Zurohewmkpj Propion-Salmeterol 250-50 mcg/dose blister with device Discontinued 1 INH INHALATION Every 12 hours 60 July 26, 2024 2:19pm January 23, 2025 6:01pmStart: 67-87-6790Kwwmwtapfiy Propion-Salmeterol 250-50 mcg/dose blister with device Active 1 INH INHALATION Every 12hours 60 July 26, 2024 2:19pmStart: 05-29-2024 End: 72-84-6652Tdliaprcxow Propion-Salmeterol (Advair Diskus) 250-50 mcg/dose blister with device Discontinued 1 INH INHALATION Twice daily 60 30 May 29, 2024 1:00am July 26, 2024 2:19pmlevoFLOXacin 750 mg oral tablet (6 sources)Quinolone AntimicrobialStart: 05-10-2024 End: 78-60-3102xfqa 1 tablet by mouth once dailyLevofloxacin 750 mg tablet Active 750 MG PO Daily 7 June 04, 2024 10:27am Complies with drug therapymecobalamin 1 mg chewable tablet (6 sources)Start: 19-82-0823lkuw 1 tablet by mouth once dailyMecobalamin (Vitamin B12) 1,000 mcg tablet,chewable Active 1000 MCG PO Daily August 03, 2023 1:00am Complies with drug therapymetoprolol tartrate 100 mg oral tablet (20 sources)beta-Adrenergic BlockerStart: 13-03-7629ykon 1 tablet by mouth twice dailyMetoprolol Tartrate 100 mg tablet Active 0 .ROUTE .COMPLEX 180 October 15, 2024 10:34pm TAKE ONE TABLET BY MOUTH TWICE A DAY Complies with drug therapy Start: 08-03-2023 End: 41-21-4755xhcy 1 tablet by mouth twice dailyMetoprolol Tartrate 100 mg tablet Discontinued 100 MG PO Twice daily 180 90 November 14, 2023 1:16pm October 15, 2024 10:35pmMetoprolol Tartrate 100 MG TAKE 1 TABLET TWICE A DAY for 90 Active Multi For Her - (7 sources)Multi For Her - as directed Orally ActiveMultivitamin (Multiple Vitamins) tablet (6 sources)Start: 44-40-1585poqw 1 tablet by mouth once dailyMultivitamin (Multiple Vitamins) tablet Active 1 TAB PO Daily August 03, 2023 1:00am Complies with drug therapyStart: 21-50-1090rvfi 1 tablet by mouth once daily Multivitamin (Multiple Vitamins) tablet Active 1 TAB PO Daily August 03, 2023 1:00amStart: 26-81-4610iqvd 1 tablet by mouth once dailyMultivitamin (Multiple Vitamins) tablet Active 1 TAB PO Daily August 03, 2023 12:00am omeprazole 40 mg delayed release oral capsule (20 sources)Proton Pump InhibitorStart: 90-56-2891ztde 1 capsule by mouth once daily 30 minutes before breakfastOmeprazole 40 mg capsule,delayed release(DR/EC) Active 0 .ROUTE .COMPLEX 90 October 15, 2024 10:34pm TAKE 1 CAPSULE BY MOUTH EVERY DAY ON AN EMPTY STOMACH 30 MINUTES BEFORE BREAKFAST Complies with drug therapy Start: 08-03-2023 End: 11-87-4737wkkl 1 capsule by mouth once daily at breakfastOmeprazole 40 mg capsule,delayed release(DR/EC) Discontinued 40 MG PO Daily November 14, 2023 1:16pm October 15, 2024 10:35pm ON EMPTY STOMACH FOLLOWED IN 30 MINUTES BY BREAKFASTOmeprazole 40 MG TAKE 1 CAPSULE DAILY ON EMPTY STOMACH FOLLOWED IN 30 MINUTES BY BREAKFAST Activesertraline 100 mg oral tablet (20 sources)Serotonin Reuptake InhibitorStart: 05-06-2024 End: 05-53-2829vdwa 1 tablet by mouth at bedtimeSertraline 100 mg tablet Active 0 .ROUTE .COMPLEX October 15, 2024 10:34pm TAKE 1 TABLET BY MOUTH AT BEDTIME Complies with drug therapyStart: 08-03-2023 End: 35-98-7652lyzl 1 tablet by mouth once daily at bedtimeSertraline 100 mg tablet Discontinued 100 MG PO Daily at bedtime November 14, 2023 1:16pm May 06, 2024 8:00amSertraline HCl 100 MG TAKE 1 TABLET AT BEDTIME for 90 ActiveSertraline HCl 100 MG TAKE 1 TABLET AT BEDTIME ActiveSertraline HCl 100 MG TAKE 1 TABLET AT BEDTIME for 90 Activevitamin b12 1 mg extended release oral tablet (1 source)Vitamin S48fnrd 1 tablet by mouth every twenty-four hoursVitamin B12 1000 MCG 1 tablet Orally Once a day ActiveVitamin B12 1000 MCG (6 sources)take 1 tablet by mouth once dailyVitamin B12 1000 MCG 1 tablet Orally Once a day ActiveVitamin D3 250 MCG (83863 UT) (6 sources)Start: 26-61-0803Osbjm: 48-92-7039ewrg 1 capsule by mouth every other dayVitamin D3 250 MCG (74460 UT) 1 capsule Orally qod for 30 days Nov, Active Completed/Discontinued Medications MedicationDrug Class(es)DatesSig (Normalized)Sig (Original)doxycycline hyclate 100 mg oral capsule (14 sources)Tetracycline-class DrugStart: 08-03-2023 End: 17-88-5400xyng 1 capsule by mouth twice dailyDoxycycline Hyclate 100 mg capsule Discontinued 100 MG PO Twice daily 23 12August 03, 2023 1:00am November 28, 2023 10:48amStart: 49-88-6207zofk 1 capsule by mouth twice daily as needed Doxycycline Hyclate 100 MG 1 capsule Orally twice daily for 7 days Sep, Not-Taking/PRNphentermine hydrochloride 37.5 mg oral tablet (8 sources)Sympathomimetic Amine AnorecticStart: 05-29-2024 End: 38-73-7600dgzx 1 tablet by mouth once daily 30 minutes after breakfast Phentermine (Adipex-P) 37.5 mg tablet Discontinued 37.5 MG PO Daily 30 June 28, 2024 12:10pm July 26, 2024 2:19pm must administer 30 minutes before or 1-2 hours after breakfastpredniSONE 20 mg oral tablet (14 sources)Start: 08-03-2023 End: 04-76-4584Zdpayikune 20 mg tablet Discontinued 20 MG PO As Directed August 03, 2023 1:00am November 28, 2023 10:48am 1 tab tid w/ food x 3 days, then bid w/ food x 3 days, then qd w/ food x 3 daysStart: 18-40-3989ymudqoUUWP 20 MG 1 tablet Orally tid w/ food x 3 days, then bid w/ food x 3 days, then qd w/ food x3 days for 9 Sep, Not-Taking/PRN Problems Active Problems Problem ClassificationProblemDateDocumented DateEpisodic/ChronicAcute bronchitis (9 sources)Acute bronchitis due to other specified organisms; Translations: [Acute bronchitis]Onset: 07-31-2013 Resolved: 84-19-5172IykqpiutCdqdidgw reactions (20 sources)Allergic contact dermatitis due to plants, except food; Translations: [Allergic contact dermatitis due to plants, except food]Onset: 11-25-2013 Resolved: 12-29-7393JinyyfouKesrozs disorders (16 sources)Generalized anxiety disorder; Translations: [Generalized anxiety disorder]ChronicAsthma (7 sources)Asthma; Translations: [Unspecified asthma, uncomplicated]08-03-2023 ChronicComment on above:CXR: diffuse interstitial markings - T: minor scarring, 3-4mm right sided nodules, RML 5mm GGO, AMANDA 5mm nodule, 2.7cm calcification distal left 12th rib - ardiac dysrhythmias (17 sources)Palpitations; Translations: [Palpitations]Onset: 11-13-2018 Resolved: 41-19-2891OuxpiwhvBbraonsnwp and other anemia (13 sources)Pernicious anemia; Translations: [Vitamin B12 deficiency anemia due to intrinsic factor deficiency]EpisodicDeficiency and other anemia (1 source)Vitamin B12 deficiency anemia due to intrinsic factor deficiency EpisodicDisorders of lipid metabolism (20 sources)Pure hypercholesterolemia; Translations: [Familial hypercholesterolemia]ChronicEsophageal disorders (16 sources)Gastro-esophageal reflux disease with esophagitis; Translations: [Gastro-esophageal reflux disease with esophagitis, without bleeding]11-26-2023 ChronicEssential hypertension (20 sources)Essential hypertension; Translations: [Essential (primary) hypertension]56-18-4826VmkkzlnDcqalyolmomww and screening for infectious disease (4 sources)Vaccination given; Translations: [Encounter for immunization]Episodic Mood disorders (13 sources)Major depression in remission; Translations: [Major depressive disorder, single episode, in full remission]ChronicMultiple sclerosis (20 sources)Multiple sclerosis; Translations: [Multiple sclerosis]ChronicOther lower respiratory disease (7 sources)Cough; Translations: [Cough]36-06-9533YdoijhjeGydxd lower respiratory disease (3 sources)Multiple nodules of lung; Translations: [Other nonspecific abnormal finding of lung field]45-02-1869CnylnoegLbrfuie on above:CT: small pulmonary nodules (most 3-4mm in size), 5mm RML, 5mm AMANDA nodules, 2.7cm calcification dist al left 12th rib - 08/2024Other lower respiratory disease (2 sources)Other nonspecific abnormal finding of lung field; Translations: [Other nonspecific abnormal findingof lung field]96-28-9568MsfcitzlSbsnt nutritional; endocrine; and metabolic disorders (7 sources)Severe obesity; Translations: [Morbid (severe) obesity due to excess calories]ChronicOther nutritional; endocrine; and metabolic disorders (11 sources)Body mass index 30+ - obesity; Translations: [Body mass index (BMI) 37.0-37.9, adult]Onset: 02-10-2016 Resolved: 24-52-5600LkbysnsOuzny nutritional; endocrine; and metabolic disorders (1 source)Morbid (severe) obesity due to excess caloriesChronicOther nutritional; endocrine; and metabolic disorders (1 source)Body mass index (BMI) 37.0-37.9, adultChronicOther nutritional; endocrine; and metabolic disorders (8 sources)Obesity; Translations: [Obesity, unspecified]56-88-2321RncwbufVrwjb nutritional; endocrine; and metabolic disorders (4 sources)Simple obesity ; Translations: [Other obesity due to excess calories] ChronicOther nutritional; endocrine; and metabolic disorders (4 sources)Obesity, unspecified; Translations: [Obesity, unspecified]05-29-2024 ChronicOther screening for suspected conditions (not mental disorders or infectious disease) (20 sources)Encounter for screening mammogram for malignant neoplasm of breast; Translations: [Mammography abnormal]Onset: 01-12-2015 Resolved: 07-49-1626AhtadpidNtdzr upper respiratory disease (13 sources)Seasonal allergic rhinitis; Translations: [Other seasonal allergic rhinitis]ChronicOther upper respiratory infections (15 sources)Acute sinusitis; Translations: [Acute sinusitis, unspecified]Onset: 06-29-2016 Resolved: 848172-49-6451LwlcmpglYhfrsxsou by other medications and drugs (3 sources)Poisoning by vitamins, accidental (unintentional), initial encounter; Translations: [Poisoning by vitamins, accidental (unintentional), subsequent encounter]EpisodicResidual codes; unclassified (17 sources)Periodic limb movement disorder; Translations: [Periodic limb movement disorder]88-67-9134LncdxzqTkxjgrff codes; unclassified (19 sources)Obstructive sleep apnea syndrome; Translations: [Obstructive sleep apnea (adult) (pediatric)]31-84-0788MuppkmfQaxnixrw codes; unclassified (1 source)Obstructive sleep apnea (adult) (pediatric)ChronicResidual codes; unclassified (1 source)Periodic limb movement disorderChronicResidual codes; unclassified (1 source)Periodic leg movements of sleep ; Translations: [Periodic limb movement disorder]72-05-9328RhwgwotUcmcyktc codes; unclassified (1 source)Family history of malignant neoplasm of bladder; Translations: [FAM HX MALIGNANT NEOPLASM BLADDER]Onset: 99-54-7406VvesmsabZujcwtp disorders (15 sources)Subclinical hyperthyroidism; Translations: [Thyrotoxicosis, unspecified without thyrotoxic crisis or storm]72-02-2996Jdvfrrk Past or Other Problems Problem ClassificationProblemDateDocumented DateEpisodic/ChronicBacterial infection; unspecified site (4 sources)Bacterial infectious disease; Translations: [Bacterial infection, unspecified, in conditions classified elsewhere and of unspecified site]Onset: 05-09-2018 Resolved: 23-89-4874ImyghxnfJjqoawwtne disorders (6 sources)Esophageal disorders; Translations: [Gastroesophageal reflux disease with esophagitis without hemorrhage]Malaise and fatigue (4 sources)Malaise and fatigue; Translations: [Other malaise and fatigue]Onset: 80-97-0861IjluygqcDrsezblnmvfm breast conditions (8 sources)Benign mammary dysplasia; Translations: [Other specified benign mammary dysplasias]Onset: 09-27-2016 Resolved: 08-30-2464EbgxmlotGqizrmcytrg deficiencies (4 sources)Vitamin D deficiency; Translations: [Vitamin D deficiency, unspecified]Onset: 01-23-2015 Resolved: 65-28-0834GgwxnaiFfkba and unspecified benign neoplasm (4 sources)Eruptive melanocytic nevi; Translations: [Melanocytic nevi, unspecified]Onset: 02-10-2016 Resolved: 20-50-7699QwsmnviaQohrd connective tissue disease (4 sources)Muscle pain; Translations: [Unspecified myalgia and myositis]Onset: 21-29-8189PmhqutesDeboj ear and sense organ disorders (4 sources)Malignant otitis externa; Translations: [Malignant otitis externa] Onset: 05-18-2018 Resolved: 11-30-0617GvpqwsgVbgpa ear and sense organ disorders (4 sources)Infective otitis externa; Translations: [Unspecified infective otitis externa]Onset: 05-18-2018 Resolved: 13-45-8510NpzzldjIchly hereditary and degenerative nervous system conditions (4 sources)Restless legs; Translations: [Restless legs syndrome] Resolved: 52-14-7333XromwdsQbmed non-traumatic joint disorders (4 sources)Joint pain; Translations: [Pain in joint, site unspecified]Onset: 68-48-9149EzytpcxvWuxgv nutritional; endocrine; and metabolic disorders (4 sources)Obese class I; Translations: [Body mass index 34.0-34.9, adult]Onset: 02-10-2016 Resolved: 97-56-3457YmeiqakOnovu nutritional; endocrine; and metabolic disorders (4 sources)Obese class II; Translations: [Body mass index 35.0-35.9, adult] Onset: 11-11-2016 Resolved: 27-11-2733SzznmhtWjqqpz media and related conditions (4 sources)Eustachian tube salpingitis; Translations: [Unspecified Eustachian salpingitis, right ear]Onset: 05-09-2018 Resolved: 88-09-5412TsqsppybZjywxfhlulvx (4 sources)Abnormal result; Translations: [Other abnormal clinical finding] Onset: 43-15-4413Ilbwx infection (4 sources)Viral disease; Translations: [Viral infection, unspecified]Onset: 07-31-2013 Resolved: 45-50-7117Reybvedh Results Test NameValueInterpretationReference RangeFacilityMG MAMM SCREEN 3D ANIBAL CADon 47-77-8861RI MAMM SCREEN 3D ANIBAL CADPatient: FRANCIS ESPARZA Exam Date: 03/18/2022 : 1965 Gender:F Ordering : DR PARVEZ DONOHUE D.O. Admission #: [id number] Family : Order #: [id number] CLICK HERE TO VIEW EXAM RADIOLOGY REPORT [...] bladder cancer at age 68. LOCATION: [facility] BREAST COMPOSITION: Heterogeneously dense,which may obscure small [...] by: Joy Moncada MD on 03/18/2022 at 11:50[facility] Vital Signs Date TimeVital SignValuePerforming TglaopsmrWdbztprc38-67-1588 10:020400Body .64 cmBenjamin Ball DO Work Phone: [facility]09-16-2025 10:02-0400 Body mass index (BMI) [Ratio]36.6 kg/i7Szipiymx Ball DO Work Phone: [facility]09-16-2025 10:02-0400 Body ltambh902.13 kgBenjamin Ball DO Work Phone: [phone]09-16-2025 10:02-0400 Diastolic blood zvwtdbzy29 mm[Hg]Parvez Ball DO Work Phone: [phone]09-16-2025 10:02-0400 Heart rate73 /minBenjamin Ball DO Work Phone: [phone] [place], [place] 5775509-16-2025 10:02-0400 Respiratory rate12 /minBenjamin Ball DO Work Phone: [phone] [place], [place] 5775509-16-2025 10:02-0400 Systolic blood zrtnimbz368 mm[Hg]Parvez Ball DO Work Phone: [phone]03-24-2025 10:36-0400 Body dhuwxz314.64 cmSt. [facility]03-24-2025 10:36-0400Body mass index (BMI) [Ratio]34.9 kg/i4FdpnnjjpmSt. John Of God Hospital03-24-2025 10:36-0400Body xpuwya12.2 kgSt. [facility] Hospital03-24-2025 10:36-0400Diastolic blood kbzjwewq35 mm[Hg][facility] 09-02-2024 10:36-0400Heart rate67 /[facility] 09-02-2024 10:36-0400Respiratory rate12 /[facility] 09-02-2024 10:36-0400Systolic blood xsttvdub210 mm[Hg][facility]01-17-2025 10:31-0500Body ruklyg378.64 cmSt. [facility]01-17-2025 10:31-0500Body mass index (BMI) [Ratio]35 kg/w9XylotmiytSt. John Of God Hospital01-17-2025 10:31-0500Body .54 kgSt. [facility] Of [facility] Hospital01-17-2025 10:31-0500Diastolic blood kjcwokvl54 mm[Hg] [facility]01-17-2025 10:31-0500Heart rate80 /[facility]01-17-2025 10:31-0500Respiratory rate12 /[facility]01-17-2025 10:31-0500Systolic blood qdmfiugl90 mm[Hg] [facility]12-18-2024 10:32-0500Body jfugqj833.[address] [facility]12-18-2024 10:32-0500Body mass index (BMI) [Ratio]36.9 kg/e1DbfjwxoutSt. John Of God Hospital12-18-2024 10:32-0500Body zewnfd888.87 [facility]12-18-2024 10:32-0500Diastolic blood bhgusbob84 mm[Hg][facility]12-18-2024 10:32-0500 Heart rate66 /[facility]12-18-2024 10:32-0500 Respiratory rate12 /[facility]12-18-2024 10:32-0500 Systolic blood mm[Hg][facility]06-18-2024 10:49-0400Body ytwmzo384.64 cmSt. [facility] Of [facility] Hospital06-18-2024 10:49-0400Body mass index (BMI) [Ratio]35.9 kg/p9ChmulimqcSt. John Of God Hospital06-18-2024 10:49-0400Body uwsemd297.86 [facility] 11-28-2023 10:49-0400Diastolic blood kwbxphaf03 mm[Hg][facility]06-18-2024 10:49-0400Heart rate70 /[facility] 11-28-2023 10:49-0400Respiratory rate12 /[facility] 11-28-2023 10:49-0400Systolic blood rdcbpwza893 mm[Hg][facility]12-18-2023 14:30-0500Body rshuax913.64 cmSt. [facility] Of [facility]12-18-2023 14:30-0500Body .87 kgSt. [facility] Of [facility] 05-29-2023 14:30-0500Diastolic blood mm[Hg][facility]12-18-2023 14:30-0500Systolic blood vemmkshk717 mm[Hg][facility]06-27-2023 10:00-0400Body mdfard213.64 cmBenmikel Donohue Other [facility] Other 06-27-2023 10:00-0400Body mass index (BMI) [Ratio] 37.31 kg/j6Astfgpzk Ball Other [facility] Other 06-27-2023 10:00-0400Body drxigz348.87 kgBenmikel Donohue Other [facility] Other 06-27-2023 10:00-0400Diastolic blood hhkojnlq97 mm[Hg] Parvez Ball Other [facility] Other 06-27-2023 10:00-0400Respiratory rate12 /minBenjalizzie Ball Other [facility] Other 06-27-2023 10:00-0400Systolic blood gzquqcde855 mm[Hg] Parvez Ball Other [facility] Other Encounters Encounter DateEncounter TypeCare ProviderFacilityStart: 02-25-2025 End: 65-96-0139vphvbhjtzoZpebldou Ball DO Work Phone: [facility] Work Phone: Start: 02-25-2025 End: 15-74-7685Stozjbo encounter procedureBenjamin Ball DO-[facility] Work Phone: Start: 54-89-0800Rhtzrpp encounter statusBenmikel Donohue DO [facility] Phone: [facility] 09-02-2024 End: 22-92-7251pkiwizfdexIyeoriijdChillicothe Hospital Work Phone: Start: 09-02-2024 End: 14-97-6310Kojqvoe encounter procedureFirmilnesvilles Physician [facility] Work Phone: Start: 08-16-2024 End: 53-18-0701fnalklnlklICBTUI Harpreet Edmond AvailableStart: 06-28-2024 End: 50-26-8994ncgymogzxfBuhtyifioChillicothe Hospital Work Phone: Start: 06-28-2024 End: 57-12-4202Qszneov encounter procedureFirtiffanys Physician Group-[facility] Work Phone: Start: 65-28-7908Ctb-patient / Non-visitFirelands Physician Group-[facility] Work Phone: Start: 05-29-2024 End: 98-77-1544Yymewhh encounter procedureFirmilnesvilles Physician Group-[facility] Work Phone: Start: 05-10-2024 End: 24-66-8034Dzlhkds encounter procedureFirmilnesvilles Physician Group-[facility] Work Phone: Start: 04-03-2024 End: 16-19-7717vzuzvqjpwcNxwzjiczqSelect [facility] Work Phone: Start: 04-03-2024 End: 09-21-3503Cvvwidj encounter procedureFirmilnesvilles Physician Group-[facility] Work Phone: Start: 11-28-2023 End: 94-61-9774llqorwagwzYrrwmofjpChillicothe Hospital Work Phone: Start: 11-28-2023 End: 86-09-0615Evlnpwgtj for general adult medical examination without abnormal findingsSelect [facility]: 11-28-2023 End: 94-25-9768Zspuhkz encounter procedureNov[facility] Work Phone: Start: 08-03-2023 End: 30-07-7251kxuszzjfypTgoedjtuaChillicothe Hospital Work Phone: Start: 08-03-2023 End: 08-59-0244Pwphvwt encounter procedureNovant Health/[facility] Work Phone: Start: 05-29-2023 End: 47-25-7721Rihsoch encounter procedureNovant Health/[facility] Work Phone: Start: 05-22-2023 End: 46-11-2876lisdfkdfmmLtyaseaw Ball Other noInf[facility] Other Start: 83-08-5886Yobwobwku encounterBenjamin BallFPG Ball Medical ClinicStart: 05-16-2023 End: 65-64-2909aanrehreplHwdrelju Ball Other noInf[facility] Other Start: 49-49-0490Cxnoebmnf encounterBenjamin BallFPG [facility] Medical ClinicStart: 05-15-2023 End: 38-23-9184qukuwowkulZygmnzgw Ball Other noInf[facility] Other Start: 32-22-8945Mmmqlglst encounterBenjamin BallFPG [facility] Medical ClinicStart: 04-03-2023 End: 15-50-3850owudfbngusJjfamgro Ball Other noInf[facility] Other Start: 52-73-4052Hihwdudqu encounterBenjamin BallFPG [facility] Medical ClinicStart: 12-06-2022 End: 30-31-6175oylojyfbxzAdixrqls Ball Other noInf[facility] Other Start: 54-88-8879Hjszllzyh for general adult medical examination without abnormal findingsParvez Donohue Medical ClinicStart: 12-05-6896Ghrfsiuk preventive med est patient 40-64yrsBetina Donohue Medical ClinicStart: 93-23-4156Xtnehagff encounterBetina Donohue Medical ClinicStart: 2022 End: 74-82-7051jpiewuhlvdDtmtnnro Ball Other [facility] Other Start: 03-58-2815Xliiprfol encounterParvez Donohue Medical ClinicStart: 09-22-2022 End: 12-09-2171qyukkcpmmcDkmjnygz Ball Other noGlobal [employer] [facility] Other Start: 91-37-6537Elmcqe outpatient visit 15 minutes [facility] ClinicStart: 03-18-2022 End: 50-64-1318xtvwbrukmbDI PARVEZ DONOHUEFacility:Y5Gydwe: 90-21-3228Czqlw health examinationParvez Donohue Other [facility] Other Procedures DateProcedureProcedure DetailPerforming ClinicianStart: 02-08-2017 End: 19-63-4251Ftcbzxtid mammographyParvez Donohue Other Start: 02-10-2016 End: 06-77-9388Ivptjtj examination of patientParvez Donohue Other Start: 02-10-2016 End: 92-76-2094Bzrmnutup for malignant neoplasm of colonParvez Donohue Other Screening for malignant neoplasm of breastParvez Donohue Other Plan of Treatment DateCare ActivityDetailAuthorXR Chest 2 [facility] Immunizations Immunization DateImmunizationNotesCare XrgqgembOkaduqfr59-98-5133uyiwmzzai, seasonal, injectable, preservative [facility] 91-20-2534jdsvsqkev virus vaccine, split virus (incl. purified surface antigen) Parvez Donohue Other noInf[facility] Other [id number] virus vaccine, unspecified formulationSt. [facility]10-17-2022influenza, injectable, quadrivalent, preservative [facility]10-17-2022 influenza, injectable, quadrivalent, contains preservativeBenjalizzie Florentin Other [employer] [facility] Other [id number]-28 Vaccine Moderna - Documentation Purposes OnlyBenmikel Donohue Other [facility]10-19-2021influenza virus vaccine, split virus (incl. purified surface antigen)Parvez Donohue Other [facility] Other [id number] virus vaccine, unspecified formulationSt. [facility]03-26-2021COVID-19 Vaccine Moderna - Documentation Purposes OnlyBenmikel Donohue Other [facility]03-17-2021COVID-19 Vaccine Moderna - Documentation Purposes OnlyBenmikel Donohue Other [facility]02-26-2021COVID-19 Vaccine Moderna - Documentation Purposes OnlyBetina Donohue Other [facility]10-10-2019influenza virus vaccine, split virus (incl. purified surface antigen)Parvez Donohue Other [facility] Other [id number] virus vaccine, unspecified formulationSt. [facility] Payers DatePayer CategoryPayerPolicy [id number] of Defense ( and others)[id number] Social History DateTypeDetailFacilitySex Assigned At [facility] Other Start: 08-03-2023 End: 97-18-6965Bbaaiyd smoking status NHISEx-smoker (finding)[facility]: 10-48-2035Pbu [facility]: 06-28-2024 End: 07-70-2101ItwAuaamd (finding)[facility] Clinical Notes 09-22-2022 to 06-28-2024 Note Date & RjimUfzsXdjouvfl70-59-3550 Evaluation note* Diagnosis Onset Date Resolution Status Admit Date Cough acuteJanuary 2024 10:23amHypertensionacuteJanuary 2024 10:23am ObesityacuteJanuary 2024 10:23amCoughacuteMarch 2024 10:16am HypertensionacuteMarch 2024 10:16amObesityacuteMarch 2024 10:16am Pulmonary nodulesacuteMarch 2024 10:16am [facility] Work Phone: 1(566) 785-775411-29-2024 Evaluation note* Diagnosis Onset Date Resolution Status Admit Date Acute sinusitis acuteNovember 2023 11:17amAsthmaacuteNovember 2023 11:17amMS (multiple sclerosis)acuteNovember 2023 11:17amCoughacuteDecember 2023 10:17amGAD (generalized anxiety disorder)acuteDecember 2023 10:17am GERD (gastroesophageal reflux disease)acuteDecember 2023 10:17am HypercholesterolemiaacuteDecember 2023 10:17amHypertensionacuteDecember 2023 10:17amObesityacuteDecember 2023 10:17amCoughacuteJanuary 2024 10:23amGAD (generalized anxiety disorder)acuteJanuary 2024 10:23am HypertensionacuteJanuary 2024 10:23amObesityacuteJanuary 2024 10:23am [facility] Work Phone: 1(190) 768-735712-04-2023 Evaluation note* Encounter Date Diagnosis Assessment Notes Treatment Notes Treatment Clinical Notes May, Poisoning by vitamin D, accidental or unintentional, initial encounter (ICD-10 - T45.2X1A) [facility] Other 06-27-2023 Evaluation note* Encounter Date Diagnosis Assessment Notes Treatment Notes Treatment Clinical Notes Nov, Wellness examination (ICD-10 - Z 00.00) Healthy diet and exercise. Reviewed age-appropriate preventive testing recommended. Nov,Hypercholesterolemia (ICD-10 - E78.00)Instructed on diet and exercise with continued statin therapy.Discussed the beneficial effects of lo wering cholesterol in reducing the risk for cerebrovascular and cardiovascular disease. Nov,astroesophageal reflux disease with esophagitis without hemorrhage (ICD-10 - K21.00)Diet instructions: Smaller portions, avoid eating and laying flat, avoid eating or drinking prior to bedtime. Weight loss. Nov,MS (multiple sclerosis) (ICD-10 - G35)Symptoms tolerable, no treatment necessary. f/u Neurology Nov,OSA (obstructive sleep apnea) (ICD-10 - G47.33)This patient is aware of the benefits associated with MARLEY: With continued use, the patient reduces t he risk for IN, CVA, HTN, cardiac dysrhythmias and sudden cardiac deaths.The patient is also aware of the association between MARLEY and morning headaches, daytime somnolence, fatigue and obesity, whichalso has been improved with continued use.The patient is compliant with treatment, wearing the equipment every night for greater than 4 hours.The patient is instructed to continue use of the CPAP forOSA treatment. Nov,ernicious anemia (ICD-10 - D51.0)SL B12 1000mcg daily. CBC w/ normal Hgb, MCV Nov,LMD (periodic limb movement disorder) (ICD-10 - G47.61)Improved w/ use of Klonopin and PAP Nov,AD (generalized anxiety disorder) (ICD-10 - F41.1)Healthy diet, exercise and keep active. Continue SSRI Nov,oisoning by vitamin D, accidental or unintentional, initial encounter (ICD-10 - T45.2X1A)Instructed to hold Vitamin D during summer. Restart in February and decrease to 10,000u qod Recheck Vitamin D in Nov,Morbid (severe) obesity due to excess calories (ICD-10 - E66.01)This patient has been instructed on a low-fat, high-fiber diet. They are instructed to reduce calories, portion sizes and snacks. It is recommended that they exercise for 30 minutes, 3-5 times weekly. Nov,ody mass index [BMI] 37.0-37.9, adult (ICD-10 - Z68.37) Nov,olon cancer screening (ICD-10 - Z12.11) [facility] Other 06-27-2023 Evaluation note* Encounter Date Diagnosis Assessment Notes Treatment Notes Treatment Clinical Notes Nov, Screening mammogram for breast c ancer (ICD-10 - Z12.31) [facility] Other 04-13-2023 Evaluation note* Encounter Date Diagnosis Assessment Notes Treatment Notes Treatment Clinical Notes Sep, Acute bronchitis due to other sp ecified organisms (ICD-10 - J20.8) Instructed to use Robitussin or Mucinex for cough, saline or Flonase NS for congestion, Tylenol forpain and fever. [facility] Other Evaluation noteNo InformationNort [facility] Other Evaluation noteNortFarmDrop Other Evaluation noteNo assessment information available [facility] Work Phone: Evaluation note* Diagnosis Onset Date Resolution Status PHYLLIS (generalized anxiety disorder) acuteGERD (gastroesophageal reflux disease)acuteHypercholesterolemiaacute HypertensionacuteSubclinical hypothyroidismacuteWellness examinationnoneactive [facility] Work Phone: Evaluation note* Diagnosis Onset Date Resolution Status Admit Date Asthma acuteSept2024 9:54amGERD (gastroesophageal reflux disease)acute February 25, 2025 9:54amHypercholesterolemiaacuteSeptember 2024 9:54am HypertensionacuteSept2024 9:54amMS (multiple sclerosis)acute February 25, 2025 9:54amObesityacuteSeptember 2024 9:54amObstructive sleep apneaacuteSept2024 9:54amPulmonary nodulesacuteSept2024 9:54am [facility] Work Phone: History general Narrative - Reported* Type Description Date Medical History Pernicious anemia Medical HistorySubclinical hyperthyroidismMedical HistoryObstructive sleep apnea Medical HistoryEssential (primary) hypertensionMedical HistoryHyperlipidemia type IIMedical HistoryGastroesophageal reflux disease with esophagitis without hemorrhageMedical HistorySeasonal allergic rhinitis, unspecified triggerMedical HistoryAbnormal mammogram of left breastMedical HistoryAllergic contact dermatitis due to plants, except foodMedical HistoryMS (multiple sclerosis) Medical HistoryPalpitationMedical HistoryPLMD (periodic limb movement disorder) Medical HistoryMajor depression in remissionSurgical HistoryBIOPSY OF LEFT BREAST WITH ULTRASOUND GUIDANCESurgical HistorySEPTOPLASTYSurgical History USSAIREHNFLVO0123Nqtohhla HistoryTUBAL [id number] ZafrmifZFG6695 Surgical CdfydgrVACABAQDAZ2130Qbfngypx HistoryRIGHT [id number] Hospitalization HistorySEE SURGICAL HX [facility] [employer] Other History general Narrative - ReportedNortSt. Christopher's Hospital for Children [employer] Other Reason for referral (narrative)No reason for referral information availableUc [facility] Hospital Work Phone: Summary Purpose Family History Relationship Condition Age at Onset Recorded Date/T rober father Alive and well Unknown Advance Directives Advance Directive Response Recorded Date/ Time Advance Directives No July 06, 2023 11:54am Advance Directive Response Recorded Date/ Time Advance Directives No July 06, 2023 12:54pm Chief Complaint and Reason for Visit Chief Complaint 6 Month Follow Up Sinuses, Neg [phone] Chief Complaint 6 month follow up Reason for Visit PHYLLIS (generalized anx iety disorder) GERD (gastroesophageal reflux disease) Hypercholesterolemia Hypertension Subclinical hypothyroidism Wellness examination Chief Complaint flu shot Chief Complaint Admit Date flu shot April 03, 2024 1 0:37am [phone], cough, nasal congestion, f ever May 10, 2024 11:17am 6 month f/u May 29, 2024 10:17am CC Adult Risk Stratification May 312023 11:29am 1 month f/u June 28, 2024 1 0:23am Reason for Visit Admit Date Acute sinusitis May 10, 2024 11:17am Asthma May 10, 2024 11:17am MS (multiple sclerosis) May 10, 2 024 11:17am Cough May 29, 2024 10:17am PHYLLIS (generalized anxiety disorder) Decem rene 2023 10:17am GERD (gastroesophageal reflux disease) D ecember 2023 10:17am Hypercholesterolemia May 29, 2024 10:17am Hypertension May 29, 2024 10:17am Obesity May 29, 2024 10:17am Cough June 28, 2024 1 0:23am PHYLLIS (generalized anxiety disorder) Janua 2024 10:23am Hypertension June 28, 2024 1 0:23am Obesity June 28, 2024 1 0:23am Chief Complaint Admit Date 1 month f/u June 28, 2024 1 0:23am Wellness September 02, 2024 10: 16am Reason for Visit Admit Date Cough June 28, 2024 1 0:23am Hypertension June 28, 2024 1 0:23am Obesity June 28, 2024 1 0:23am Cough September 02, 2024 10: 16am Hypertension September 02, 2024 10: 16am Obesity September 02, 2024 10: 16am Pulmonary nodules September 02, 2024 10: 16am Chief Complaint Admit Date 6 month f/u Aaliyah 16th, 2025 9:54am Reason for Visit Admit Date Asthma February 25, 2025 9:54am GERD (gastroesophageal reflux disease) S eptember 2024 9:54am Hypercholesterolemia February 25 9:54am Hypertension February 25, 2025 9:54am MS (multiple sclerosis) February 25, 2025 9:54am Obesity February 25, 2025 9:54am Obstructive sleep apnea February 25, 2025 9:54am Pulmonary nodules February 25, 2025 9:54am Additional Source Comments INFORMATION SOURCE (unrecogn ized section and content) DATE CREATED AUTHOR 03/22/2022 [facility] DATE CREATED AUTHOR AUTHOR'S ORGANIZ ATION 08/18/2024 [facility] EPIC REASON FOR VISIT (unrecogniz ed section and content) [phone]- Sinuses/ Conge stionNo InformationWELLNESSNo InformationNo Informationmamm resultsVitamin D recheckNo Informationlab results Care Teams (unrecognized sec tion and content) Team Status: Active Member Role Status Demi Donohue DO Primary Care Provider Active Team Status: Inactive Member Role Status Demi Donohue DO Attending Provider Active Sta rt: [...] April 03, 2024 End: April 03, 2024 Team Status: Inactive Member Role Status Demi Donohue DO Primary Care Provide r, Attending Provider Active Start: May 10, 2024 End: May 10, 2024 Team Status: Inactive Member Role Status Demi Donohue DO Primary Care Provide r, Attending Provider Active Start: May 29, 2024 End: May 29, 2024 Team Status: Active Member Role Status Demi Donohue DO Primary Care Provide r, Attending Provider Active Start: May 31, 2024 Team Status: Inactive Member Role Status Demi Donohue DO Primary Care Provide r, Attending Provider Active Start: June 28, 2024 End: June 28, 2024 Team Status: Inactive Member Role Status Dates Parvez Donohue DO Primary Care Provide r, Attending Provider Active Start: September 02, 2024 End: September 02, 2024 Team Status: Inactive Member Role Status Dates Parvez Donohue DO Primary Care Provider Active Start: February 25, 2025 End: February 25enevangelinalizzie DO FlorentinAttending ProviderActiveStart: February 25, 2025 End: February 25, 2025 Goals (unrecognized section and content) Goals may [...] BE BASED ON THE PRIMARY CLINICAL RECORDS. [employer] provides no warranty or guarantee of the accuracy or completeness of information in this document.
--- NOTE | 2025-04-04 10:33 | MM_ITS ---
Patient Name: FRANCIS ESPARZA MR#: [id number] : 1965 Exam Date: 04/04/2025 Ordering Doctor: DR FELIZ DONOHUE D.O. RADIOLOGY REPORT PROCEDURE: MM TOMOSYNTHESIS SCREENING BI COMPARISON: MM TOMOSYNTHESIS SCREENING BI, 04/03/2024. MM TOMOSYNTHESIS SCREENING BI, 03/30/2023. MG MAMM SCREEN 3D ANIBAL CAD, 03/18/2022. MG MAMM ANIBAL SCRN W CAD DIG, 11/27/2012. INDICATIONS: screening for malignant neoplasm Calculator Name NCI Breast Cancer Risk Assessment Tool 5 Year Breast Cancer Risk 1.90% Lifetime Breast Cancer Risk 9.70% Personal Breast Cancer No Personal Ovarian Cancer No Treatments None Family Cancers Mother with bladder cancer at age 69. LOCATION: [facility] BREAST COMPOSITION: The breasts are heterogeneously dense, which may obscure small masses. FINDINGS: RIGHT BREAST: No significant suspicious finding. Similar focal asymmetries are present. There is a benign-appearing lymph node along the right chest wall. LEFT BREAST: No significant suspicious finding. Similar focal asymmetries are present. There is a benign-appearing lymph node along the left chest wall. DIAGNOSTIC CATEGORY 2--BENIGN FINDING. NO CHANGE FROM COMPARISON. RECOMMENDATIONS: ROUTINE MAMMOGRAM AND CLINICAL EVALUATION IN 12 MONTHS. Dictated by: Mik Barillas MD on 04/04/2025 at 14:10 Approved by: Mik Barillas MD on 04/04/2025 at 14:12
== END 2025-04-04 10:28 | disposition home or self-care (01) ==
LOC: MAMMO 10:27
PROVIDERS: PCP Internal Medicine; Visit Provider Internal Medicine
DX: Z12.31 Encounter for screening mammogram for malignant neoplasm of breast (principal); Z80.52 Family history of malignant neoplasm of bladder
CPT/HCPCS: 77063; 77067